=== PATIENT | female | born 1960 | race American Indian/Alaskan Native ===

== ENCOUNTER 2018-01-16 15:09 | Inpatient (IN) | payer OTHER ==
[2018-01-16 15:09] VITALS: BMI 28.6
--- NOTE | 2018-01-16 15:53 | C.PDOC ---
History Of Present Illness 57 year old female with past medical history of diabetes type II presents to the ER for left foot ulcer. Patient states she noticed the ulcer about 2 weeks ago. She saw her PMD Dr. Erickson last week who started her on Bactrim BID for 10 days and Lasix 20mg daily. Patient states she has not noticed any improvement. She had a scheduled appointment with podiatry, Dr. Luisito crook who sent her to the ER. She states she has had chills at home and has been taking her medications as prescribed by Dr. Erickson. She states she has been able to walk with her cane but she feels slight pressure on the bottom of her foot. She denies fever at home or lower extremity pain. Time Seen by Provider: 01/16/18 15:30 Chief Complaint (Nursing): Lower Extremity Problem/Injury Past Medical History Vital Signs: Last Vital Signs Temp 100.2 F H 01/16/18 17:38 Pulse 97 H 01/16/18 17:38 Resp 18 01/16/18 17:38 BP 108/73 01/16/18 17:38 Pulse Ox 100 01/16/18 17:40 - Medical History PMH: Diabetes, Fractures (orif right knee jun 2013), HTN, Hypercholesterolemia - [facility] Procedures CLOSED BIOPSY OF SKIN AND SUBCUTANEOUS TISSUE (11/16/13) ENDOSC POLYPECTOMY OF LG INTEST (04/04/13) OP RED-INT FIX TIB/FIBUL (07/04/13) Family History: States: Unknown Family Hx - Social History Hx Tobacco Use: Yes (2 CIG/DAY) Hx Alcohol Use: No (OCC) Hx Substance Use: No - Immunization History Hx Tetanus Toxoid Vaccination: No Hx Influenza Vaccination: Yes Hx Pneumococcal Vaccination: No Review Of Systems Constitutional: Positive for: Fever, Chills Cardiovascular: Negative for: Chest Pain, Palpitations Gastrointestinal: Negative for: Nausea, Vomiting, Diarrhea Genitourinary: Negative for: Dysuria Skin: Positive for: Other (left foot ulcer; right great toe is dark) Neurological: Negative for: Weakness, Numbness Physical Exam - Physical Exam Appears: Toxic, No Acute Distress Skin: Warm, Other (2cm stage 3 ulcer on the left foot; right great toe necrotic ) Head: Atraumatic, Normacephalic Eye(s): bilateral: Normal Inspection, PERRL, EOMI Cardiovascular: Rhythm Regular Respiratory: Normal Breath Sounds Gastrointestinal/Abdominal: Soft Extremity: Other (2cm stage 3 ulcer on the left foot; right great toe necrotic ) Neurological/Psych: Oriented x3 ED Course And Treatment - Laboratory Results Result Diagrams: 01/16/18 16:13 01/16/18 16:13 ECG: Interpreted By Me, Viewed By Me ECG Rhythm: Sinus Rhythm ECG Interpretation: Normal Rate From EC O2 Sat by Pulse Oximetry: 100 Medical Decision Making Medical Decision Making: Patient was given Vancomycin and Zosyn in the ER. Spoke with podiatry resident at 4pm. Podiatry resident stated wound culture was collected in the clinic. WBC 11.3 Febrile Wound and Blood culture ordered Given Tylenol once Spoke with hospitalist at 5:30pm who accepted patient for admission. Disposition Discussed With : Heath Quintanilla Doctor Will See Patient In The: ED - Disposition Disposition: HOSPITALIZED Disposition Time: 17:40 Condition: FAIR Forms: [facility] ([place]an) - Clinical Impression Clinical Impression: Diabetic foot ulcer associated with type 2 diabetes mellitus, Osteomyelitis of left foot - PA / [employer] / Resident Statement MD/DO has reviewed & agrees with the documentation as recorded. MD/DO has examined the patient and agrees with the treatment plan.
[2018-01-16 16:17] LABS: BASO # 0.1 K/uL (0.0-0.2); BASO % 0.8 % (0.0-2.0); EOS # 0.1 K/uL (0.0-0.7); EOS % 0.7 % (0.0-4.0); HEMOGLOBIN 9.7 g/dL (11.0-16.0); LYMPH # 0.9 K/uL (1.0-4.3); LYMPH % 8.3 % (20.0-40.0); MEAN CORPUSCULAR HEMOGLOBIN 25.8 pg (27.0-31.0); MEAN PLATELET VOLUME 7.1 fL (7.2-11.7); MONO # 0.8 K/uL (0.0-0.8); MONO % 7.5 % (0.0-10.0); NEUT # 9.3 K/uL (1.8-7.0); NEUT % 82.7 % (50.0-75.0); NRBC % 0.1 % (0.0-2.0); RBC 3.74 Mil/uL (3.80-5.20); RED CELL DISTRIBUTION WIDTH 15.1 % (11.5-14.5)
[2018-01-16 16:21] LABS: MEAN CELL VOLUME 80.8 fL (81.0-99.0); PLATELET COUNT 547 K/uL (130-400); WHITE BLOOD COUNT 11.3 K/uL (4.8-10.8)
[2018-01-16] MEDS ORDERED: Piperacillin/Tazobact 3.375 gm 100 ML IVPB STA (16:24)
[2018-01-16 16:31] LABS: ALB/GLOB RATIO 0.7 (1.0-2.1); ALBUMIN 3.6 g/dL (3.5-5.0); CALCIUM 9.9 mg/dl (8.6-10.4); GFR AFRICAN-AMERICAN > 60; GFR NON-AFRICAN AMERICAN > 60
[2018-01-16 16:33] LABS: ALT/SGPT 12 U/L (9-52); AST/SGOT 19 U/L (14-36); BLOOD UREA NITROGEN 8 mg/dL (7-17)
[2018-01-16 16:40] LABS: BANDS 1 % (0-2); LYMPHOCYTE 8 % (20-40); MONOCYTE 5 % (0-10); NEUTROPHIL 86 % (50-75); TOTAL CELLS COUNTED 100
[2018-01-16 16:41] LABS: ANISOCYTOSIS SLIGHT; GIANT PLATELETS PRESENT; HYPOCHROMIC SLIGHT; LARGE PLATELETS PRESENT; PLATELET ESTIMATE INCREASED (NORMAL); POIKILOCYTOSIS SLIGHT; TARGET CELLS SLIGHT
--- NOTE | 2018-01-16 17:14 | RAD ---
Date of service: 01/16/2018 HISTORY: fever COMPARISON: Comparison chest 05/26/2015. FINDINGS: LUNGS: Questionable tiny bleb changes right apex. . PLEURA: No significant pleural effusion identified, no pneumothorax apparent. CARDIOVASCULAR: Normal. OSSEOUS STRUCTURES: No significant abnormalities. VISUALIZED UPPER ABDOMEN: Normal. OTHER FINDINGS: None. IMPRESSION: No active disease. Questionable tiny bleb changes right lung apex.
[2018-01-16] MEDS ORDERED: Piperacillin/Tazobact 3.375 gm 100 ML IVPB ONE (17:19)
--- NOTE | 2018-01-16 17:47 | RAD ---
Date of service: 01/16/2018 PROCEDURE: Bilateral Feet Radiographs. HISTORY: LE ulcer COMPARISON: None. FINDINGS: BONES: Right Foot: Destructive changes of the distal phalanx right great toe with apparent skin surface and subcutaneous ulceration consistent with osteomyelitis. Surrounding soft tissue swelling. Left Foot: Apparent on ulceration changes distal soft tissues left great toe . Early destructive changes osteomyelitis cannot be excluded. JOINTS: Right Foot: Mild hallux valgus deformity with multi articular degenerative osteoarthritis. . Left Foot: Mild hallux valgus deformity with mild multi articular degenerative osteophytes. . SOFT TISSUES: Right Foot: Soft tissue swelling right great toe. . . Left Foot: Soft tissue swelling left great toe. Soft tissue swelling extends proximally to involve remaining soft tissues of the left foot consistent with cellulitis. . . OTHER FINDINGS: None. IMPRESSION: There is a skin surface and subcutaneous ulcer distal right the toe with destructive changes of distal phalanx consistent with osteomyelitis. C. Surrounding soft tissue swelling. Ulcerative changes distal soft tissues of left great toe with surrounding soft tissue swelling. Soft tissue swelling that extends proximally involving the remainder of the left foot consistent with cellulitis.
[2018-01-16] MEDS ORDERED: Dextrose 50% SYRINGE Inj (50 ml) IV PRN (21:53)
[2018-01-16] MEDS ORDERED: Glucagon Recombinant 1 mg Inj IM PRN (21:53)
--- NOTE | 2018-01-16 22:01 | CP.PCM.PN ---
Subjective - Date & Time of Evaluation Date of Evaluation: 01/16/18 Time of Evaluation: 21:55 - Subjective Subjective: Assessment * Left foot abscess, cellulitis under great toe, expressed out pus, swelling in foot, with warmth and pain extending lower 1/3 of the foot, likely started form callus, and dm neuropathy, present DP and PT pulses. * Right foot calluses at pressure area and dry skin on the great toe, present DP, but very weak PT pulses * DM on 75/25 30-0-25 daily. Plan * MRI to see the extent and if the bone infected * IV vanco and zosyn * Wound/puss culture sent in ER * Podiatry aware * Arterial doppler * GI/DVT prophylaxis * Insulin 75/25 25-0-25 * Sliding scale * See orders for detail. Objective - Vital Signs/Intake and Output Vital Signs (last 24 hours): Temp Pulse Resp BP Pulse Ox 99.2 F 95 H 20 121/75 98 01/16/18 19:07 01/16/18 19:07 01/16/18 19:07 01/16/18 19:07 01/16/18 19:07 - Medications Medications: Current Medications Piperacillin Sod/Tazobactam Sod (Zosyn 3.375 Gm Iv Premix) 3.375 gm in 50 mls @ 100 mls/hr IVPB Q6H STEPHANIE PRN Reason: Protocol Vancomycin/Sodium Chloride (Vancomycin 1 Gm/Ns 200 Ml) 1 gm in 200 mls @ 166.7 mls/hr IVPB Q24H STEPHANIE PRN Reason: Protocol Stop: 01/22/18 06:01 Pneumococcal Polyvalent Vaccine (Pneumovax 23 Vaccine) 0.5 ml IM .ONCE ONE Stop: 01/19/18 10:01 Saccharomyces Boulardii (Florastor) 250 mg PO BID STEPHANIE - Labs Labs: 01/16/18 16:13 01/16/18 16:13
--- NOTE | 2018-01-16 22:17 | CP.PCM.HP ---
<Krystal Pate - Last Filed: 01/16/18 22:31> History of Present Illness - History of Present Illness History of Present Illness: CC: Left foot ulcer HPI: Patient is a 57 year old AA female with past medical history of diabetes who presents to the ED after she was seen by her chemistry tutor, Dr. Jorge for left medial foot ulcer. Patient states that she noted left foot wound approximately 2 weeks ago. Patient states that she was seen by her PMD, Dr. Erickson, on January 11 and was prescribed Bactrim 1 tab Q12H and Lasix 20mg PO QD. Since seeing her PMD, patient has noted worsening symptoms such as swelling , tightness, drainage and pins/needle sensation when she starts to ambulate. In addition, patient also noted subjective fever and chills for 2 days. She admits to associated symptoms of decrease appetite for the past 2 weeks. Patient states that she has not been following up with Opal Polisher, Dr. Jorge due to loss of insurance. Patient denies any other symptoms. Code Status: Full code PMD: Dr. Erickson PMHx: Diabetes PSHx: CLOSED BIOPSY OF SKIN AND SUBCUTANEOUS TISSUE (11/16/13), ENDOSC POLYPECTOMY OF LG INTEST (04/04/13) and OP RED-INT FIX TIB/FIBUL (07/04/13) FHx: - Mother: Breast cancer/ unilateral mastectomy, - Maternal Grandmother and Maternal Great grandmother: Diabetes Medications: Humalog 75/25 30 units ACB and Humalog 75/25 25 units ACD Allergies: NKDA Social Hx: Lives with her children. Admits to tobacco use of 5 yrs (3-4 cigarettes per day), occasional ETOH use and illicit drug use Present on Admission - Present on Admission Any Indicators Present on Admission: Yes History of Uncontrolled Diabetes: Yes Review of Systems - Constitutional Constitutional: Chills, Fever. absent: Headache, Increased Appetite, Weight Gain, Weakness - EENT Eyes: absent: Blurred Vision, Change in Vision Ears: absent: Dizziness - Cardiovascular Cardiovascular: absent: Chest Pain, Chest Pain at Rest, Diaphoresis, Dyspnea, Lightheadedness, Palpitations - Respiratory Respiratory: absent: Dyspnea, Dyspnea on Exertion, Wheezing - Gastrointestinal Gastrointestinal: absent: Abdominal Pain, Constipation, Diarrhea, Nausea, Vomiting - Genitourinary Genitourinary: absent: Dysuria, Pyuria, Urinary Frequency, Urinary Urgency - Neurological Neurological: Abnormal Gait, Tingling. absent: Confusion, Dizziness, Headaches , Loss of Vision, Paresthesias, Restless Legs, Sensory Deficit, Weakness Additional comments: Pins and needle sensation left foot - Psychiatric Psychiatric: Change in Appetite - Endocrine Endocrine: absent: Fatigue, Palpitations Past Patient History - Past Medical History & Family History Past Medical History?: Yes - Past Social History Smoking Status: 2 cig/day - CARDIAC Hx Hypercholesterolemia: Yes Hx Hypertension: Yes - ENDOCRINE/METABOLIC Hx Endocrine Disorders: Yes Hx Diabetes Mellitus Type 2: Yes - INTEGUMENTARY Hx Dermatological Problems: Yes Hx Eczema: Yes (none at present) Other/Comment: necrotic wound on foot, ulcers - MUSCULOSKELETAL/RHEUMATOLOGICAL Hx Falls: Yes (2013) Hx Fractures: Yes (orif right knee jun 2013) - PSYCHIATRIC Hx Substance Use: No - SURGICAL HISTORY Hx Surgeries: Yes Hx Open Reduction Internal Fixation: Yes (orif right knee jun 2013) - ANESTHESIA Hx Anesthesia: Yes Hx Anesthesia Reactions: No Hx Malignant Hyperthermia: No Meds Allergies/Adverse Reactions: Allergies Allergy/AdvReac Type Severity Reaction Status Date / Time No Known Allergies Allergy Verified 01/16/18 15:19 Physical Exam - Constitutional Appears: No Acute Distress - Head Exam Head Exam: ATRAUMATIC, NORMAL INSPECTION - Eye Exam Eye Exam: EOMI, Normal appearance - ENT Exam ENT Exam: Mucous Membranes Moist - Respiratory Exam Respiratory Exam: Clear to Auscultation Bilateral, NORMAL BREATHING PATTERN. absent: Decreased Breath Sounds, Prolonged Expiratory Phase, Rhonchi, Wheezes, Respiratory Distress - Cardiovascular Exam Cardiovascular Exam: REGULAR RHYTHM, +S1, +S2. absent: Tachycardia, Diastolic murmur, Systolic Murmur - GI/Abdominal Exam GI & Abdominal Exam: Normal Bowel Sounds, Soft. absent: Diminished Bowel Sounds , Distended, Firm, Guarding, Hernia, Hyperactive Bowel Sounds, Hypoactive Bowel Sounds, Tenderness - Extremities Exam Additional comments: Left foot: Medial ( below the great toe) abscess with odorous pus drainage and expression. 2 plantar calluses Warm to touch with DP and PT pulses palpable Right foot: 2-3 plantar calluses and noted dry/necrotic skin on the great toe. Warm to touch and palpable DT and PT pulses - Back Exam Back exam: NORMAL INSPECTION. absent: CVA tenderness (L), CVA tenderness (R) - Neurological Exam Neurological exam: Alert, CN II-XII Intact, Oriented x3 - Psychiatric Exam Psychiatric exam: Normal Affect - Skin Skin Exam: Normal Color Results - Vital Signs Recent Vital Signs: Last Vital Signs Temp 99.2 F 01/16/18 19:07 Pulse 95 H 01/16/18 19:07 Resp 20 01/16/18 19:07 BP 121/75 01/16/18 19:07 Pulse Ox 98 01/16/18 19:07 - Labs Result Diagrams: 01/16/18 16:13 01/16/18 16:13 Labs: Laboratory Results - last 24 hr 01/16/18 01/16/18 16:13 16:13 WBC 11.3 H D RBC 3.74 L Hgb 9.7 L Hct 30.2 L MCV 80.8 L D MCH 25.8 L MCHC 32.0 L RDW 15.1 H Plt Count 547 H D MPV 7.1 L Neut % (Auto) 82.7 H Lymph % (Auto) 8.3 L [place] % (Auto) 7.5 Eos % (Auto) 0.7 Baso % (Auto) 0.8 Neut # (Auto) 9.3 H Lymph # (Auto) 0.9 L [place] # (Auto) 0.8 Eos # (Auto) 0.1 Baso # (Auto) 0.1 Neutrophils % (Manual) 86 H Band Neutrophils % 1 Lymphocytes % (Manual) 8 L Monocytes % (Manual) 5 Platelet Estimate Increased H Large Platelets Present Giant Platelets Present Hypochromasia (manual) Slight Poikilocytosis (manual Slight Anisocytosis (manual) Slight Target Cells Slight ESR 100 H Sodium 137 Potassium 4.2 Chloride 98 Carbon Dioxide 24 Anion Gap 19 BUN 8 Creatinine 0.8 Est GFR ( Amer) > 60 Est GFR (Non-Af Amer) > 60 Random Glucose 161 H Calcium 9.9 Total Bilirubin 0.8 AST 19 ALT 12 Alkaline Phosphatase 98 Total Protein 8.5 H Albumin 3.6 Globulin 4.9 H Albumin/Globulin Ratio 0.7 L Assessment & Plan (1) Diabetic foot ulcer associated with type 2 diabetes mellitus Assessment and Plan: Left foot ulcer Consultation: Opal PolisherDr. Jorge---> Help appreciated * Management as per recommendation Infectious disease, Imaging/ Labs: Foot X-ray: There is a skin surface and subcutaneous ulcer distal right the toe with destructive changes of distal phalanx consistent with osteomyelitis. C. Surrounding soft tissue swelling. Ulcerative changes distal soft tissues of left great toe with surrounding soft tissue swelling. Soft tissue swelling that extends proximally involving the remainder of the left foot consistent with cellulitis. F/u Foot MRI F/u wound culture Medication/Management: * Vancomycin 1gm IV Q12H * Zosyn 3.357gm IV Q6H * Florastor 250mg PO BID Status: Acute (2) Diabetes mellitus Assessment and Plan: HgbA1C (01/16/18): 9.9 Continue home medication: * Humalog 70/30 25 units ACB * Humalog 70/30 25 units ACD * ISS low dose * Lisinopril 2.5mg PO daily * Accuchecks * Hypoglycemia protocol F/u lipid panel Status: Acute (3) Prophylactic measure Assessment and Plan: GI: Not indicated DVT: SCDs contraindicated. Heparin 5,000 units Q8H All plans and management discussed with Dr. Kaba Status: Acute <Mark Kaba P - Last Filed: 01/20/18 07:51> Results - Vital Signs Recent Vital Signs: Last Vital Signs Temp 98.3 F 01/20/18 00:00 Pulse 89 01/20/18 00:00 Resp 20 01/20/18 00:00 BP 110/69 01/20/18 00:00 Pulse Ox 100 01/20/18 00:00 - Labs Result Diagrams: 01/19/18 07:28 01/19/18 07:28 Labs: Laboratory Results - last 24 hr 01/19/18 01/19/18 01/19/18 07:28 11:21 11:22 Sodium 137 Potassium 4.0 Chloride 101 Carbon Dioxide 27 Anion Gap 14 BUN 8 Creatinine 0.8 Est GFR ( Amer) > 60 Est GFR (Non-Af Amer) > 60 POC Glucose (mg/dL) 59 L 63 L Random Glucose 123 H Calcium 9.7 Phosphorus 3.2 Magnesium 1.7 Total Bilirubin 0.4 AST 22 ALT 15 Alkaline Phosphatase 85 Total Protein 7.1 Albumin 3.2 L Globulin 3.8 Albumin/Globulin Ratio 0.8 L 01/19/18 01/19/18 01/19/18 12:00 16:18 21:42 Sodium Potassium Chloride Carbon Dioxide Anion Gap BUN Creatinine Est GFR ( Amer) Est GFR (Non-Af Amer) POC Glucose (mg/dL) 87 110 98 Random Glucose Calcium Phosphorus Magnesium Total Bilirubin AST ALT Alkaline Phosphatase Total Protein Albumin Globulin Albumin/Globulin Ratio Attending/Attestation - Attestation I have personally seen and examined this patient.: Yes I have fully participated in the care of the patient.: Yes I have reviewed all pertinent clinical information: Yes Notes (Text): See note on the same day.
[2018-01-16] MEDS: Piperacill/Tazo 3.375gm in Dex 3.375 GM/50 ML BAG IVPB SCH (22:19)
[2018-01-16] MEDS: (Novolog) Insulin Aspart, Recombinant 100 u/ml 10 ml vial SC SCH (22:48)
[2018-01-17] MEDS: Piperacill/Tazo 3.375gm in Dex 3.375 GM/50 ML BAG IVPB SCH ×4 (05:38→22:02)
[2018-01-17] MEDS ORDERED: Vancomycin 1 gm/NS 200 ml 1 GM/200 ML BAG IVPB SCH ×2 (06:00→08:00)
[2018-01-17 06:04] LABS: BASO # 0.1 K/uL (0.0-0.2); BASO % 1.1 % (0.0-2.0); EOS # 0.1 K/uL (0.0-0.7); EOS % 1.3 % (0.0-4.0); HEMOGLOBIN 8.6 g/dL (11.0-16.0); LYMPH # 1.6 K/uL (1.0-4.3); LYMPH % 19.8 % (20.0-40.0); MEAN CELL VOLUME 80.1 fL (81.0-99.0); MEAN CORPUSCULAR HEMOGLOBIN 26.2 pg (27.0-31.0); MEAN CORPUSCULAR HGB CONC 32.7 g/dL (33.0-37.0); MEAN PLATELET VOLUME 6.9 fL (7.2-11.7); MONO # 0.9 K/uL (0.0-0.8); MONO % 11.8 % (0.0-10.0); NEUT # 5.2 K/uL (1.8-7.0); NRBC % 0.1 % (0.0-2.0); RBC 3.28 Mil/uL (3.80-5.20); WHITE BLOOD COUNT 7.9 K/uL (4.8-10.8)
[2018-01-17 07:31] LABS: LDL CHOLESTEROL 66 mg/dL (0-129)
[2018-01-17 07:32] LABS: ALB/GLOB RATIO 0.9 (1.0-2.1); ALBUMIN 3.1 g/dL (3.5-5.0); ALT/SGPT 15 U/L (9-52); AST/SGOT 32 U/L (14-36); BLOOD UREA NITROGEN 7 mg/dL (7-17); CALCIUM 9.4 mg/dl (8.6-10.4); GFR AFRICAN-AMERICAN > 60; GFR NON-AFRICAN AMERICAN > 60; HDL CHOLESTEROL 18 mg/dL (30-70)
[2018-01-17] MEDS: (Novolog) Insulin Aspart, Recombinant 100 u/ml 10 ml vial SC SCH ×4 (08:18→22:01)
[2018-01-17] MEDS: (Novolog Mix 70/30) Insulin Aspart/Insulin Aspar 100 units/ml SC SCH ×2 (08:25→16:30)
[2018-01-17] MEDS: Vancomycin 1 gm/NS 200 ml 1 GM/200 ML BAG IVPB SCH ×2 (10:39→20:00)
[2018-01-17] MEDS: Saccharomyces Boulardi 250 mg Cap PO SCH ×2 (10:41→17:26)
--- NOTE | 2018-01-17 11:13 | CP.PCM.CON ---
History of Present Illness - History of Present Illness History of Present Illness: 57 y/o female with PMHx of DM seen at bedside today for evaluation and management of left foot sub met 1 and lateral hallux draining ulcerations and right foot preulcerative lesions with hyperpigmented necrotic skin discoloration noted to 1st and 2nd digits. Pt was sent into the ED yesterday after seeing Dr. Jorge in podiatry clinic. Pt states that her calluses popped open a couple of weeks ago and she saw her PCP, who prescribed her antibiotics and referred her to podiatry. Pt states she has not followed up until yesterday due to issues with insurance. At present, says she had fever and chills over the last few days, which today has subsided. Denies N/V/CP/SOB. Dressings applied in podiatry clinic yesterday remain clean dry and intact. PSHx: polypectomy, ORIF tib/fib All: NKDA SocHx: social EtOH, 3-4 cigarettes/day; denies illicit drug use Review of Systems - Review of Systems All systems: reviewed and no additional remarkable complaints except (per HPI) Past Patient History - Past Medical History & Family History Past Medical History?: Yes - Past Social History Smoking Status: 2 cig/day - CARDIAC Hx Hypercholesterolemia: Yes Hx Hypertension: Yes - ENDOCRINE/METABOLIC Hx Endocrine Disorders: Yes Hx Diabetes Mellitus Type 2: Yes - INTEGUMENTARY Hx Dermatological Problems: Yes Hx Eczema: Yes (none at present) Other/Comment: necrotic wound on foot, ulcers - MUSCULOSKELETAL/RHEUMATOLOGICAL Hx Falls: Yes (2013) Hx Fractures: Yes (orif right knee jun 2013) - PSYCHIATRIC Hx Substance Use: No - SURGICAL HISTORY Hx Surgeries: Yes Hx Open Reduction Internal Fixation: Yes (orif right knee jun 2013) - ANESTHESIA Hx Anesthesia: Yes Hx Anesthesia Reactions: No Hx Malignant Hyperthermia: No Meds Allergies/Adverse Reactions: Allergies Allergy/AdvReac Type Severity Reaction Status Date / Time No Known Allergies Allergy Verified 01/16/18 15:19 - Medications Medications: Current Medications Dextrose (Dextrose 50% Inj) 0 ml IV STAT PRN; Protocol PRN Reason: Hypoglycemia Protocol Dextrose (Glutose 15) 0 gm PO ONCE PRN; Protocol PRN Reason: Hypoglycemia Protocol Glucagon (Glucagen Diagnostic Kit) 0 mg IM STAT PRN; Protocol PRN Reason: Hypoglycemia Protocol Heparin Sodium (Porcine) (Heparin) 5,000 units SC Q8 [facility] Last Admin: 01/17/18 05:37 Dose: 5,000 units Piperacillin Sod/Tazobactam Sod (Zosyn 3.375 Gm Iv Premix) 3.375 gm in 50 mls @ 100 mls/hr IVPB Q6H STEPHANIE PRN Reason: Protocol Last Admin: 01/17/18 10:41 Dose: 100 mls/hr Dextrose (Dextrose 5% In Water 1000 Ml) 1,000 mls @ 0 mls/hr IV .Q0M PRN; Protocol; Per Protocol PRN Reason: Hypoglycemia Protocol Vancomycin/Sodium Chloride (Vancomycin 1 Gm/Ns 200 Ml) 1 gm in 200 mls @ 166.7 mls/hr IVPB Q12H STEPHANIE PRN Reason: Protocol Stop: 01/22/18 08:01 Last Admin: 01/17/18 10:39 Dose: 166.7 mls/hr Insulin Aspart (Novolog Mix 70/30 (70/30 Units/Ml)) 25 units SC ACB [facility] Last Admin: 01/17/18 08:25 Dose: 25 units Insulin Aspart (Novolog Mix 70/30 (70/30 Units/Ml)) 25 units SC ACD [facility] Insulin Aspart (Novolog) 0 unit SC ACHS [facility] PRN Reason: Protocol Last Admin: 01/17/18 08:18 Dose: Not Given Lisinopril (Zestril) 2.5 mg PO DAILY [facility] Last Admin: 01/17/18 10:41 Dose: 2.5 mg Pneumococcal Polyvalent Vaccine (Pneumovax 23 Vaccine) 0.5 ml IM .ONCE ONE Stop: 01/19/18 10:01 Saccharomyces Boulardii (Florastor) 250 mg PO BID [facility] Last Admin: 01/17/18 10:41 Dose: 250 mg Physical Exam - Constitutional Appears: Well, Non-toxic, No Acute Distress - Extremities Exam Additional comments: Lower extremity focused exam: Vasc: DP/PT pulses palpable 2/4. Temperature gradient warm to cool. CFT < 3 sec to all digits of left foot and 3-5th digits R foot; unable to assess to R foot 1st and 2nd digits secondary to possible necrotic changes. Derm: Open circular ulceration approx 2cm in diameter noted sub met 1 of L foot with macerated wound edges. Significant malodor noted. Wound probes down to metatarsal bone. 3-4cc purulent drainage expressed with pressure. Fluctuance noted to jeana wound area extending proximally. Wound tunnels proximally and laterally approx 4-5cm. Additional circular ulceration 0.9cm in diameter noted to lateral aspect of hallux with macerated wound edges. Wound probes to hallux bone. No active purulent drainage expressed. R foot 1st and 2nd digits exhibit necrotic, gangrenous skin changes. Hyperkeratotic preulcerative lesions noted to distal medial hallux and sub met 2 of R foot with dense, thickened hyperkeratotic tissue. Neuro: Protective sensation grossly intact Ortho: Mild-moderate tenderness to palpation of left foot ulcerations. No tenderness to palpation of R foot digits - Neurological Exam Neurological exam: Alert, Oriented x3 - Psychiatric Exam Psychiatric exam: Normal Affect, Normal Mood Results - Vital Signs Recent Vital Signs: Last Vital Signs Temp 98.2 F 01/17/18 07:58 Pulse 83 01/17/18 07:58 Resp 20 01/17/18 07:58 BP 113/72 01/17/18 07:58 Pulse Ox 97 01/17/18 07:58 - Labs Result Diagrams: 01/17/18 05:57 01/17/18 05:57 Labs: Laboratory Results - last 24 hr 01/16/18 01/16/18 01/16/18 16:13 16:13 21:02 WBC 11.3 H D RBC 3.74 L Hgb 9.7 L Hct 30.2 L MCV 80.8 L D MCH 25.8 L MCHC 32.0 L RDW 15.1 H Plt Count 547 H D MPV 7.1 L Neut % (Auto) 82.7 H Lymph % (Auto) 8.3 L [place] % (Auto) 7.5 Eos % (Auto) 0.7 Baso % (Auto) 0.8 Neut # (Auto) 9.3 H Lymph # (Auto) 0.9 L [place] # (Auto) 0.8 Eos # (Auto) 0.1 Baso # (Auto) 0.1 Neutrophils % (Manual) 86 H Band Neutrophils % 1 Lymphocytes % (Manual) 8 L Monocytes % (Manual) 5 Platelet Estimate Increased H Large Platelets Present Giant Platelets Present Hypochromasia (manual) Slight Poikilocytosis (manual Slight Anisocytosis (manual) Slight Target Cells Slight ESR 100 H Sodium 137 Potassium 4.2 Chloride 98 Carbon Dioxide 24 Anion Gap 19 BUN 8 Creatinine 0.8 Est GFR ( Amer) > 60 Est GFR (Non-Af Amer) > 60 POC Glucose (mg/dL) 153 H Random Glucose 161 H Calcium 9.9 Phosphorus Magnesium Total Bilirubin 0.8 AST 19 ALT 12 Alkaline Phosphatase 98 Total Protein 8.5 H Albumin 3.6 Globulin 4.9 H Albumin/Globulin Ratio 0.7 L Triglycerides Cholesterol LDL Cholesterol Direct HDL Cholesterol 01/17/18 01/17/18 01/17/18 05:57 05:57 07:14 WBC 7.9 RBC 3.28 L Hgb 8.6 L Hct 26.3 L MCV 80.1 L MCH 26.2 L MCHC 32.7 L RDW 15.0 H Plt Count 492 H MPV 6.9 L Neut % (Auto) 66.0 Lymph % (Auto) 19.8 L [place] % (Auto) 11.8 H Eos % (Auto) 1.3 Baso % (Auto) 1.1 Neut # (Auto) 5.2 Lymph # (Auto) 1.6 [place] # (Auto) 0.9 H Eos # (Auto) 0.1 Baso # (Auto) 0.1 Neutrophils % (Manual) Band Neutrophils % Lymphocytes % (Manual) Monocytes % (Manual) Platelet Estimate Large Platelets Giant Platelets Hypochromasia (manual) Poikilocytosis (manual Anisocytosis (manual) Target Cells ESR Sodium 137 Potassium 3.3 L Chloride 99 Carbon Dioxide 29 Anion Gap 12 BUN 7 Creatinine 0.8 Est GFR ( Amer) > 60 Est GFR (Non-Af Amer) > 60 POC Glucose (mg/dL) 133 H Random Glucose 153 H Calcium 9.4 Phosphorus 2.7 Magnesium 1.6 Total Bilirubin 0.4 AST 32 ALT 15 Alkaline Phosphatase 85 Total Protein 6.8 Albumin 3.1 L Globulin 3.6 Albumin/Globulin Ratio 0.9 L Triglycerides 83 D Cholesterol 118 LDL Cholesterol Direct 66 HDL Cholesterol 18 L Assessment & Plan - Assessment and Plan (Free Text) Assessment: 57 y/o female with 1) left foot diabetic ulcerations with abscess formation, 2) right foot preulcerative hyperkeratotic lesions and 3) necrotic/gangrenous changes of 1st and 2nd digits Plan: Pt seen and evaluated at bedside Discussed with attending Dr. Jorge LLE MRI reviewed, consistent with acute OM of 1st digit and metatarsal bone, 2nd digit; reactive signal changes to all cuneiforms and cuboid bone RLE MRI reviewed, consistent with acute OM of 1st and 2nd digits Wound cx prelim shows growth of gram pos cocci Wounds flushed with saline and dressed with betadine, ABD, DSD Explained to patient that she will need surgical intervention to clean out the pus collection in the L foot Pt scheduled for left foot incision and drainge tomorrow at 12:30pm NPO after midnight tonight Anticoagulants held at this time Medical optimization in chart, greatly appreciated Pain mgt per primary team Continue IV abx per ID Dr. Moseley Will continue to follow
--- NOTE | 2018-01-17 11:58 | CP.PCM.PN ---
Subjective - Date & Time of Evaluation Date of Evaluation: 01/17/18 Time of Evaluation: 11:56 - Subjective Subjective: PGY 3 Medicine Note- Dr. Erickson's service Patient seen and examined in no apparent acute distress. Patient states that she had a non-healing ulcer on her left foot. She states that she has been on antibiotics; however there has been no improvement. She states that she was seen by Podiatry who confirmed an infection of her toe bone. She will be going to the OR tomorrow for surgery. Patient concerned about the procedure to be performed. She denies chest pain, palpitations, dyspnea nausea, vomiting, diarrhea, constipation at this time. Objective - Vital Signs/Intake and Output Vital Signs (last 24 hours): Temp Pulse Resp BP Pulse Ox 98.2 F 83 20 113/72 97 01/17/18 07:58 01/17/18 07:58 01/17/18 07:58 01/17/18 07:58 01/17/18 07:58 - Medications Medications: Current Medications Dextrose (Dextrose 50% Inj) 0 ml IV STAT PRN; Protocol PRN Reason: Hypoglycemia Protocol Dextrose (Glutose 15) 0 gm PO ONCE PRN; Protocol PRN Reason: Hypoglycemia Protocol Glucagon (Glucagen Diagnostic Kit) 0 mg IM STAT PRN; Protocol PRN Reason: Hypoglycemia Protocol Heparin Sodium (Porcine) (Heparin) 5,000 units SC Q8 [facility] Last Admin: 01/17/18 05:37 Dose: 5,000 units Piperacillin Sod/Tazobactam Sod (Zosyn 3.375 Gm Iv Premix) 3.375 gm in 50 mls @ 100 mls/hr IVPB Q6H [facility] PRN Reason: Protocol Last Admin: 01/17/18 10:41 Dose: 100 mls/hr Dextrose (Dextrose 5% In Water 1000 Ml) 1,000 mls @ 0 mls/hr IV .Q0M PRN; Protocol; Per Protocol PRN Reason: Hypoglycemia Protocol Vancomycin/Sodium Chloride (Vancomycin 1 Gm/Ns 200 Ml) 1 gm in 200 mls @ 166.7 mls/hr IVPB Q12H [facility] PRN Reason: Protocol Stop: 01/22/18 08:01 Last Admin: 01/17/18 10:39 Dose: 166.7 mls/hr Insulin Aspart (Novolog Mix 70/30 (70/30 Units/Ml)) 25 units SC ACB [facility] Last Admin: 01/17/18 08:25 Dose: 25 units Insulin Aspart (Novolog Mix 70/30 (70/30 Units/Ml)) 25 units SC ACD [facility] Insulin Aspart (Novolog) 0 unit SC ACHS [facility] PRN Reason: Protocol Last Admin: 01/17/18 08:18 Dose: Not Given Lisinopril (Zestril) 2.5 mg PO DAILY [facility] Last Admin: 01/17/18 10:41 Dose: 2.5 mg Pneumococcal Polyvalent Vaccine (Pneumovax 23 Vaccine) 0.5 ml IM .ONCE ONE Stop: 01/19/18 10:01 Saccharomyces Boulardii (Florastor) 250 mg PO BID [facility] Last Admin: 01/17/18 10:41 Dose: 250 mg - Labs Labs: 01/17/18 05:57 01/17/18 05:57 - Constitutional Appears: Non-toxic, No Acute Distress - Head Exam Head Exam: ATRAUMATIC, NORMAL INSPECTION - Eye Exam Eye Exam: EOMI Pupil Exam: PERRL - ENT Exam ENT Exam: Mucous Membranes Moist - Neck Exam Neck Exam: Full ROM - Respiratory Exam Respiratory Exam: NORMAL BREATHING PATTERN - Cardiovascular Exam Cardiovascular Exam: +S1, +S2 - GI/Abdominal Exam GI & Abdominal Exam: Soft - Extremities Exam Additional comments: left foot dressed and wrapped in kerlix bandage, dorsalis pedis pulses palpable - Neurological Exam Neurological Exam: Alert, Awake, Oriented x3 - Psychiatric Exam Psychiatric exam: Normal Affect, Normal Mood - Skin Skin Exam: Dry, Warm Assessment and Plan - Assessment and Plan (Free Text) Assessment: Diabetic foot ulcer Assessment and Plan: [employer] PresidentDr. Jorge consulted- F/U recommendations. For OR tomorrow in light of suspected osteomyelitis F/U ID ( Dr. Moseley) recommendations Imaging Foot X-ray: There is a skin surface and subcutaneous ulcer distal right the toe with destructive changes of distal phalanx consistent with osteomyelitis. C. Surrounding soft tissue swelling. Ulcerative changes distal soft tissues of left great toe with surrounding soft tissue swelling. Soft tissue swelling that extends proximally involving the remainder of the left foot consistent with cellulitis. Foot MRI findings suggestive of Osteomyelitis. F/U blood cultures and wound culture results On Vancomycin 1gm IV Q12H , Zosyn 3.357gm IV Q6H and Florastor 250mg PO BID F/U vanc trough Monitor NPO past midnight EKG findings CXR findings: Detsky Score is 0. This is indicative of a 6% chance of cardiologic event during a non-cardiologic surgery. Perez score is 0.02% for cardiac risk. Patient is medically optimized for surgical procedure based on this assessment. Status: Acute Diabetes mellitus Assessment and Plan: HgbA1C (01/16/18): 9.9 Continue home medication: * Humalog 70/30 25 units ACB * Humalog 70/30 25 units ACD * ISS low dose * Lisinopril 2.5mg PO daily * Accuchecks * Hypoglycemia protocol Status: Acute Low HDL Assessment and Plan: Recommendations for Fibrates or Niacin post surgery with continued management with outpatient doctor. Status: Likely chronic Prophylactic measure Assessment and Plan: GI: Not indicated DVT: SCDs contraindicated. Heparin 5,000 units Q8H - held past midnight
--- NOTE | 2018-01-17 12:07 | CP.PCM.CON ---
History of Present Illness - History of Present Illness History of Present Illness: 57 year old AA female with past medical history of diabetes who presents to the ED after she was seen by her javascript developer, Dr. Jorge for left medial foot ulcer. failed out pt rx started vanco/zosyn PMHx: Diabetes PSHx: CLOSED BIOPSY OF SKIN AND SUBCUTANEOUS TISSUE (11/16/13), ENDOSC POLYPECTOMY OF LG INTEST (04/04/13) and OP RED-INT FIX TIB/FIBUL (07/04/13) FHx: - Mother: Breast cancer/ unilateral mastectomy, - Maternal Grandmother and Maternal Great grandmother: Diabetes Medications: Humalog 75/25 30 units ACB and Humalog 75/25 25 units ACD Allergies: NKDA Social Hx: Lives with her children. Admits to tobacco use of 5 yrs (3-4 cigarettes per day), occasional ETOH use and illicit drug use Present on Admission - Present on Admission Any Indicators Present on Admission: Yes History of Uncontrolled Diabetes: Yes Review of Systems - Constitutional Constitutional: Chills, Fever. absent: Headache, Increased Appetite, Weight Gain, Weakness - EENT Eyes: absent: Blurred Vision, Change in Vision Ears: absent: Dizziness - Cardiovascular Cardiovascular: absent: Chest Pain, Chest Pain at Rest, Diaphoresis, Dyspnea, Lightheadedness, Palpitations - Respiratory Respiratory: absent: Dyspnea, Dyspnea on Exertion, Wheezing - Gastrointestinal Gastrointestinal: absent: Abdominal Pain, Constipation, Diarrhea, Nausea, Vomiting - Genitourinary Genitourinary: absent: Dysuria, Pyuria, Urinary Frequency, Urinary Urgency - Neurological Neurological: Abnormal Gait, Tingling. absent: Confusion, Dizziness, Headaches , Loss of Vision, Paresthesias, Restless Legs, Sensory Deficit, Weakness Additional comments: Pins and needle sensation left foot Past Patient History - Past Medical History & Family History Past Medical History?: Yes - Past Social History Smoking Status: 2 cig/day - CARDIAC Hx Hypercholesterolemia: Yes Hx Hypertension: Yes - ENDOCRINE/METABOLIC Hx Endocrine Disorders: Yes Hx Diabetes Mellitus Type 2: Yes - INTEGUMENTARY Hx Dermatological Problems: Yes Hx Eczema: Yes (none at present) Other/Comment: necrotic wound on foot, ulcers - MUSCULOSKELETAL/RHEUMATOLOGICAL Hx Falls: Yes (2013) Hx Fractures: Yes (orif right knee jun 2013) - PSYCHIATRIC Hx Substance Use: No - SURGICAL HISTORY Hx Surgeries: Yes Hx Open Reduction Internal Fixation: Yes (orif right knee jun 2013) - ANESTHESIA Hx Anesthesia: Yes Hx Anesthesia Reactions: No Hx Malignant Hyperthermia: No Meds Allergies/Adverse Reactions: Allergies Allergy/AdvReac Type Severity Reaction Status Date / Time No Known Allergies Allergy Verified 01/16/18 15:19 - Medications Medications: Current Medications Dextrose (Dextrose 50% Inj) 0 ml IV STAT PRN; Protocol PRN Reason: Hypoglycemia Protocol Dextrose (Glutose 15) 0 gm PO ONCE PRN; Protocol PRN Reason: Hypoglycemia Protocol Glucagon (Glucagen Diagnostic Kit) 0 mg IM STAT PRN; Protocol PRN Reason: Hypoglycemia Protocol Heparin Sodium (Porcine) (Heparin) 5,000 units SC Q8 [facility] Last Admin: 01/17/18 05:37 Dose: 5,000 units Piperacillin Sod/Tazobactam Sod (Zosyn 3.375 Gm Iv Premix) 3.375 gm in 50 mls @ 100 mls/hr IVPB Q6H [facility] PRN Reason: Protocol Last Admin: 01/17/18 10:41 Dose: 100 mls/hr Dextrose (Dextrose 5% In Water 1000 Ml) 1,000 mls @ 0 mls/hr IV .Q0M PRN; Protocol; Per Protocol PRN Reason: Hypoglycemia Protocol Vancomycin/Sodium Chloride (Vancomycin 1 Gm/Ns 200 Ml) 1 gm in 200 mls @ 166.7 mls/hr IVPB Q12H [facility] PRN Reason: Protocol Stop: 01/22/18 08:01 Last Admin: 01/17/18 10:39 Dose: 166.7 mls/hr Insulin Aspart (Novolog Mix 70/30 (70/30 Units/Ml)) 25 units SC ACB [facility] Last Admin: 01/17/18 08:25 Dose: 25 units Insulin Aspart (Novolog Mix 70/30 (70/30 Units/Ml)) 25 units SC ACD [facility] Insulin Aspart (Novolog) 0 unit SC ACHS [facility] PRN Reason: Protocol Last Admin: 01/17/18 08:18 Dose: Not Given Lisinopril (Zestril) 2.5 mg PO DAILY [facility] Last Admin: 01/17/18 10:41 Dose: 2.5 mg Pneumococcal Polyvalent Vaccine (Pneumovax 23 Vaccine) 0.5 ml IM .ONCE ONE Stop: 01/19/18 10:01 Saccharomyces Boulardii (Florastor) 250 mg PO BID [facility] Last Admin: 01/17/18 10:41 Dose: 250 mg Physical Exam - Constitutional Appears: Chronically Ill - Head Exam Head Exam: ATRAUMATIC - Eye Exam Eye Exam: absent: Scleral icterus - ENT Exam ENT Exam: Mucous Membranes Dry - Neck Exam Neck exam: Negative for: Lymphadenopathy - Respiratory Exam Respiratory Exam: Decreased Breath Sounds, Rhonchi - Cardiovascular Exam Cardiovascular Exam: REGULAR RHYTHM, +S1, +S2 - GI/Abdominal Exam GI & Abdominal Exam: Diminished Bowel Sounds, Soft. absent: Tenderness - Rectal Exam Rectal Exam: Deferred - Exam Exam: NORMAL INSPECTION - Extremities Exam Extremities exam: Positive for: pedal edema, tenderness. Negative for: calf tenderness, pedal pulses present - Back Exam Back exam: absent: CVA tenderness (L), CVA tenderness (R) - Neurological Exam Neurological exam: Alert, CN II-XII Intact, Oriented x3, Reflexes Normal - Psychiatric Exam Psychiatric exam: Normal Mood - Skin Skin Exam: Dry Results - Vital Signs Recent Vital Signs: Last Vital Signs Temp 98.2 F 01/17/18 07:58 Pulse 83 01/17/18 07:58 Resp 20 01/17/18 07:58 BP 113/72 01/17/18 07:58 Pulse Ox 97 01/17/18 07:58 - Labs Result Diagrams: 01/18/18 07:15 01/18/18 07:15 Labs: Laboratory Results - last 24 hr 01/16/18 01/16/18 01/16/18 16:13 16:13 21:02 WBC 11.3 H D RBC 3.74 L Hgb 9.7 L Hct 30.2 L MCV 80.8 L D MCH 25.8 L MCHC 32.0 L RDW 15.1 H Plt Count 547 H D MPV 7.1 L Neut % (Auto) 82.7 H Lymph % (Auto) 8.3 L [place] % (Auto) 7.5 Eos % (Auto) 0.7 Baso % (Auto) 0.8 Neut # (Auto) 9.3 H Lymph # (Auto) 0.9 L [place] # (Auto) 0.8 Eos # (Auto) 0.1 Baso # (Auto) 0.1 Neutrophils % (Manual) 86 H Band Neutrophils % 1 Lymphocytes % (Manual) 8 L Monocytes % (Manual) 5 Platelet Estimate Increased H Large Platelets Present Giant Platelets Present Hypochromasia (manual) Slight Poikilocytosis (manual Slight Anisocytosis (manual) Slight Target Cells Slight ESR 100 H Sodium 137 Potassium 4.2 Chloride 98 Carbon Dioxide 24 Anion Gap 19 BUN 8 Creatinine 0.8 Est GFR ( Amer) > 60 Est GFR (Non-Af Amer) > 60 POC Glucose (mg/dL) 153 H Random Glucose 161 H Calcium 9.9 Phosphorus Magnesium Total Bilirubin 0.8 AST 19 ALT 12 Alkaline Phosphatase 98 Total Protein 8.5 H Albumin 3.6 Globulin 4.9 H Albumin/Globulin Ratio 0.7 L Triglycerides Cholesterol LDL Cholesterol Direct HDL Cholesterol 01/17/18 01/17/18 01/17/18 05:57 05:57 07:14 WBC 7.9 RBC 3.28 L Hgb 8.6 L Hct 26.3 L MCV 80.1 L MCH 26.2 L MCHC 32.7 L RDW 15.0 H Plt Count 492 H MPV 6.9 L Neut % (Auto) 66.0 Lymph % (Auto) 19.8 L [place] % (Auto) 11.8 H Eos % (Auto) 1.3 Baso % (Auto) 1.1 Neut # (Auto) 5.2 Lymph # (Auto) 1.6 [place] # (Auto) 0.9 H Eos # (Auto) 0.1 Baso # (Auto) 0.1 Neutrophils % (Manual) Band Neutrophils % Lymphocytes % (Manual) Monocytes % (Manual) Platelet Estimate Large Platelets Giant Platelets Hypochromasia (manual) Poikilocytosis (manual Anisocytosis (manual) Target Cells ESR Sodium 137 Potassium 3.3 L Chloride 99 Carbon Dioxide 29 Anion Gap 12 BUN 7 Creatinine 0.8 Est GFR ( Amer) > 60 Est GFR (Non-Af Amer) > 60 POC Glucose (mg/dL) 133 H Random Glucose 153 H Calcium 9.4 Phosphorus 2.7 Magnesium 1.6 Total Bilirubin 0.4 AST 32 ALT 15 Alkaline Phosphatase 85 Total Protein 6.8 Albumin 3.1 L Globulin 3.6 Albumin/Globulin Ratio 0.9 L Triglycerides 83 D Cholesterol 118 LDL Cholesterol Direct 66 HDL Cholesterol 18 L 01/17/18 11:13 WBC RBC Hgb Hct MCV MCH MCHC RDW Plt Count MPV Neut % (Auto) Lymph % (Auto) [place] % (Auto) Eos % (Auto) Baso % (Auto) Neut # (Auto) Lymph # (Auto) [place] # (Auto) Eos # (Auto) Baso # (Auto) Neutrophils % (Manual) Band Neutrophils % Lymphocytes % (Manual) Monocytes % (Manual) Platelet Estimate Large Platelets Giant Platelets Hypochromasia (manual) Poikilocytosis (manual Anisocytosis (manual) Target Cells ESR Sodium Potassium Chloride Carbon Dioxide Anion Gap BUN Creatinine Est GFR ( Amer) Est GFR (Non-Af Amer) POC Glucose (mg/dL) 120 H Random Glucose Calcium Phosphorus Magnesium Total Bilirubin AST ALT Alkaline Phosphatase Total Protein Albumin Globulin Albumin/Globulin Ratio Triglycerides Cholesterol LDL Cholesterol Direct HDL Cholesterol Assessment & Plan (1) Diabetes mellitus Status: Acute (2) Diabetic foot ulcer associated with type 2 diabetes mellitus Status: Acute (3) Osteomyelitis of left foot Status: Acute - Assessment and Plan (Free Text) Assessment: await cultures, MRI and or bone scan vascular eval IV antibiotics
--- NOTE | 2018-01-17 12:42 | MRI ---
MRI left forefoot History: Osteomyelitis. Comparison: MRI dated 05/28/2015 Technique: Multi-echo multiplanar sequences were performed through the left forefoot without the use of intravenous contrast. Findings: Extensive signal abnormality with apparent fluid seen at the level of the 1st digit suggestive for abscess/phlegmon/gas gangrene. Clinical correlation. At the level of the 1st digit, medial to the 1st metatarsal bone, there is a 4.3 x 1.8 centimeter heterogeneous collection suggestive of an abscess collection. Adjacent heterogeneous phlegmonous changes with possible gas gangrene throughout the remainder of the soft tissues at that level. There is apparent extension of the collection to the level of the 1st flexor tendon suggestive for a infected tenosynovitis. Moderate fluid distention at 1st MTP joint space which may be an infected synovitis. Extensive signal abnormality seen within the 1st distal and proximal phalanges as well as the distal half of the 1st metatarsal bone including the metatarsal head and distal medullary cavity as well as the sesamoid bones demonstrating decreased T1 signal and increased STIR signal consistent with an acute osteomyelitis. Patchy signal abnormality noted within the 2nd middle and proximal phalanges as well as the base the 2nd metatarsal bone also concerning for acute infectious changes. Additional signal abnormality noted in the medial middle and lateral cuneiform bones as well as the lateral aspect of the cuboid bone demonstrating patchy decreased T1 signal and increased STIR signal also concerning for acute infectious changes. Scattered areas of milder reactive bone marrow edema seen at the base of the 4th metatarsal bone which may represent developing acute infectious changes. Fraying with increased signal at the level of the Lisfranc ligament suggestive for a sprain and/or partial tearing. Impression: Extensive signal abnormality with apparent fluid seen at the level of the 1st digit suggestive for abscess/phlegmon/gas gangrene. Clinical correlation. At the level of the 1st digit, medial to the 1st metatarsal bone, there is a 4.3 x 1.8 centimeter heterogeneous collection suggestive of an abscess collection. Adjacent heterogeneous phlegmonous changes with possible gas gangrene throughout the remainder of the soft tissues at that level. There is apparent extension of the collection to the level of the 1st flexor tendon suggestive for a infected tenosynovitis. Moderate fluid distention at 1st MTP joint space which may be an infected synovitis. Extensive signal abnormality seen within the 1st distal and proximal phalanges as well as the distal half of the 1st metatarsal bone including the metatarsal head and distal medullary cavity as well as the sesamoid bones demonstrating decreased T1 signal and increased STIR signal consistent with an acute osteomyelitis. Patchy signal abnormality noted within the 2nd middle and proximal phalanges as well as the base the 2nd metatarsal bone also concerning for acute infectious changes. Additional signal abnormality noted in the medial middle and lateral cuneiform bones as well as the lateral aspect of the cuboid bone demonstrating patchy decreased T1 signal and increased STIR signal also concerning for acute infectious changes. Scattered areas of milder reactive bone marrow edema seen at the base of the 4th metatarsal bone which may represent developing acute infectious changes. Fraying with increased signal at the level of the Lisfranc ligament suggestive for a sprain and/or partial tearing.
--- NOTE | 2018-01-17 13:27 | MRI ---
MRI right forefoot History: Diabetic ulcer. Evaluate for osteomyelitis. Comparison: None available. Technique: Multi-echo multiplanar sequences were performed through the right forefoot without the use of intravenous contrast. Findings: Prominent ulceration noted at the level of the 1st distal phalanx. Extensive signal abnormality seen throughout the 1st distal phalanx with decreased T1 signal and increased STIR signal suggestive for an acute osteomyelitis. Additional reactive bone marrow edema with some patchy decreased T1 signal and increased STIR signal noted at the head of the 1st proximal phalanx also concerning for developing acute osteomyelitis. Severe hallux valgus deformity with degenerative changes noted at the 1st MTP joint space with some reactive edema at the base of 1st proximal phalanx. Signal abnormality noted within the base of the 1st metatarsal bone as well as the lateral aspect of the medial cuneiform bone. This is of uncertain clinical etiology and may be the sequelae of degenerative change versus developing acute inflammatory and or infectious changes. Clinical correlation. Extensive signal abnormality seen within proximal and middle phalanges of the 2nd digit with decreased T1 signal and increased STIR signal also concerning for an acute osteomyelitis. Some additional patchy reactive bone marrow edema seen within the base of the 2nd distal phalanx. Nonspecific reactive edema and/or failure of fat suppression at the head of the 5th proximal phalanx as well as the 5th middle phalanx, nonspecific. Clinical correlation. Relative areas of patchy reactive edema seen within the 3rd and 4th phalanges may be the sequelae of failure of fat suppression. Evaluation for acute infectious and or inflammatory changes is limited on this study at these levels. Fraying with some increased signal noted at the level of the Lisfranc ligament which may represent a sprain and or partial tear. Clinical correlation. Impression: Prominent ulceration noted at the level of the 1st distal phalanx. Extensive signal abnormality seen throughout the 1st distal phalanx with decreased T1 signal and increased STIR signal suggestive for an acute osteomyelitis. Additional reactive bone marrow edema with some patchy decreased T1 signal and increased STIR signal noted at the head of the 1st proximal phalanx also concerning for developing acute osteomyelitis. Severe hallux valgus deformity with degenerative changes noted at the 1st MTP joint space with some reactive edema at the base of 1st proximal phalanx. Signal abnormality noted within the base of the 1st metatarsal bone as well as the lateral aspect of the medial cuneiform bone. This is of uncertain clinical etiology and may be the sequelae of degenerative change versus developing acute inflammatory and or infectious changes. Clinical correlation. Extensive signal abnormality seen within proximal and middle phalanges of the 2nd digit with decreased T1 signal and increased STIR signal also concerning for an acute osteomyelitis. Some additional patchy reactive bone marrow edema seen within the base of the 2nd distal phalanx. Nonspecific reactive edema and/or failure of fat suppression at the head of the 5th proximal phalanx as well as the 5th middle phalanx, nonspecific. Clinical correlation. Relative areas of patchy reactive edema seen within the 3rd and 4th phalanges may be the sequelae of failure of fat suppression. Evaluation for acute infectious and or inflammatory changes is limited on this study at these levels. Fraying with some increased signal noted at the level of the Lisfranc ligament which may represent a sprain and or partial tear. Clinical correlation.
[2018-01-18] MEDS: Piperacill/Tazo 3.375gm in Dex 3.375 GM/50 ML BAG IVPB SCH ×4 (05:03→22:05)
[2018-01-18 07:27] LABS: BASO # 0.1 K/uL (0.0-0.2); BASO % 1.2 % (0.0-2.0); EOS # 0.1 K/uL (0.0-0.7); EOS % 1.9 % (0.0-4.0); HEMOGLOBIN 8.5 g/dL (11.0-16.0); LYMPH # 1.3 K/uL (1.0-4.3); LYMPH % 24.2 % (20.0-40.0); MEAN CELL VOLUME 80.3 fL (81.0-99.0); MEAN CORPUSCULAR HEMOGLOBIN 26.8 pg (27.0-31.0); MEAN CORPUSCULAR HGB CONC 33.4 g/dL (33.0-37.0); MEAN PLATELET VOLUME 7.1 fL (7.2-11.7); MONO # 0.6 K/uL (0.0-0.8); MONO % 11.1 % (0.0-10.0); NEUT # 3.4 K/uL (1.8-7.0); NEUT % 61.6 % (50.0-75.0); RBC 3.16 Mil/uL (3.80-5.20); RED CELL DISTRIBUTION WIDTH 14.8 % (11.5-14.5); WHITE BLOOD COUNT 5.5 K/uL (4.8-10.8)
[2018-01-18 07:31] LABS: INR 1.4
[2018-01-18 07:32] LABS: PROTHROMBIN TIME 14.8 SECONDS (9.7-12.2)
[2018-01-18] MEDS: (Novolog Mix 70/30) Insulin Aspart/Insulin Aspar 100 units/ml SC SCH ×2 (07:41→17:10)
[2018-01-18] MEDS: (Novolog) Insulin Aspart, Recombinant 100 u/ml 10 ml vial SC SCH ×4 (07:41→22:02)
[2018-01-18 07:43] LABS: ALB/GLOB RATIO 0.8 (1.0-2.1); ALBUMIN 3.1 g/dL (3.5-5.0); ALT/SGPT 12 U/L (9-52); AST/SGOT 9 U/L (14-36); BLOOD UREA NITROGEN 6 mg/dL (7-17); CALCIUM 9.8 mg/dl (8.6-10.4); GFR AFRICAN-AMERICAN > 60; GFR NON-AFRICAN AMERICAN > 60
--- NOTE | 2018-01-18 07:58 | CP.PCM.PN ---
Subjective - Date & Time of Evaluation Date of Evaluation: 01/18/18 Time of Evaluation: 07:45 - Subjective Subjective: PGY 3 Med Progress Note-Dr. Erickson's service Patient seen and examined in no acute distress. Patient due to OR today. Patient denies complaints. Is ambulating though with discomfort. Patient denies subjective fevers or chills, nausea, vomiting, diarrhea at this time. Objective - Vital Signs/Intake and Output Vital Signs (last 24 hours): Temp Pulse Resp BP Pulse Ox 98.8 F 86 20 116/77 97 01/18/18 07:00 01/18/18 07:00 01/18/18 07:00 01/18/18 07:00 01/18/18 07:00 Intake and Output: 01/18/18 01/18/18 06:59 18:59 Intake Total 650 Balance 650 - Medications Medications: Current Medications Dextrose (Dextrose 50% Inj) 0 ml IV STAT PRN; Protocol PRN Reason: Hypoglycemia Protocol Dextrose (Glutose 15) 0 gm PO ONCE PRN; Protocol PRN Reason: Hypoglycemia Protocol Glucagon (Glucagen Diagnostic Kit) 0 mg IM STAT PRN; Protocol PRN Reason: Hypoglycemia Protocol Heparin Sodium (Porcine) (Heparin) 5,000 units SC Q8 [facility] Last Admin: 01/17/18 14:32 Dose: 5,000 units Piperacillin Sod/Tazobactam Sod (Zosyn 3.375 Gm Iv Premix) 3.375 gm in 50 mls @ 100 mls/hr IVPB Q6H [facility] PRN Reason: Protocol Last Admin: 01/18/18 05:03 Dose: 100 mls/hr Dextrose (Dextrose 5% In Water 1000 Ml) 1,000 mls @ 0 mls/hr IV .Q0M PRN; Protocol; Per Protocol PRN Reason: Hypoglycemia Protocol Vancomycin/Sodium Chloride (Vancomycin 1 Gm/Ns 200 Ml) 1 gm in 200 mls @ 166.7 mls/hr IVPB Q12H [facility] PRN Reason: Protocol Stop: 01/22/18 08:01 Last Admin: 01/17/18 20:00 Dose: 166.7 mls/hr Insulin Aspart (Novolog Mix 70/30 (70/30 Units/Ml)) 25 units SC ACB [facility] Last Admin: 01/18/18 07:41 Dose: Not Given Insulin Aspart (Novolog Mix 70/30 (70/30 Units/Ml)) 25 units SC ACD [facility] Last Admin: 01/17/18 16:30 Dose: 25 units Insulin Aspart (Novolog) 0 unit SC ACHS [facility] PRN Reason: Protocol Last Admin: 01/18/18 07:41 Dose: Not Given Lisinopril (Zestril) 2.5 mg PO DAILY [facility] Last Admin: 01/17/18 10:41 Dose: 2.5 mg Pneumococcal Polyvalent Vaccine (Pneumovax 23 Vaccine) 0.5 ml IM .ONCE ONE Stop: 01/19/18 10:01 Saccharomyces Boulardii (Florastor) 250 mg PO BID [facility] Last Admin: 01/17/18 17:26 Dose: 250 mg - Labs Labs: 01/18/18 07:15 01/18/18 07:15 PT 14.8 SECONDS (9.7-12.2) H 01/18/18 07:15 INR 1.4 01/18/18 07:15 APTT 31 SECONDS (21-34) 01/18/18 07:15 - Constitutional Appears: Non-toxic, No Acute Distress - Head Exam Head Exam: ATRAUMATIC, NORMAL INSPECTION - Eye Exam Eye Exam: EOMI, Normal appearance Pupil Exam: NORMAL ACCOMODATION - ENT Exam ENT Exam: Mucous Membranes Moist - Neck Exam Neck Exam: Full ROM - Respiratory Exam Respiratory Exam: NORMAL BREATHING PATTERN - Cardiovascular Exam Cardiovascular Exam: REGULAR RHYTHM, +S1, +S2 - GI/Abdominal Exam GI & Abdominal Exam: Soft, Normal Bowel Sounds - Extremities Exam Additional comments: left foot dressed and wrapped in kerlix bandage, dorsalis pedis pulses palpable - Back Exam Back Exam: Full ROM - Neurological Exam Neurological Exam: Alert, Awake, Oriented x3 - Psychiatric Exam Psychiatric exam: Normal Affect, Normal Mood - Skin Skin Exam: Dry, Warm Assessment and Plan - Assessment and Plan (Free Text) Assessment: Diabetic foot ulcer Assessment and Plan: Manager Culinary, Dr. Jorge consulted- F/U recommendations. For OR today in light of suspected osteomyelitis F/U ID ( Dr. Moseley) recommendations Imaging Foot X-ray: There is a skin surface and subcutaneous ulcer distal right the toe with destructive changes of distal phalanx consistent with osteomyelitis. C. Surrounding soft tissue swelling. Ulcerative changes distal soft tissues of left great toe with surrounding soft tissue swelling. Soft tissue swelling that extends proximally involving the remainder of the left foot consistent with cellulitis. Foot MRI findings suggestive of Osteomyelitis. F/U blood cultures and wound culture results On Vancomycin 1gm IV Q12H , Zosyn 3.357gm IV Q6H and Florastor 250mg PO BID vanc trough 8.5 on 01/18- collected too early. Will first recheck trough before 4th dosing of vanc. Will adjust medication accordingly afterwards. Monitor EKG Findings- 01/18/18 Repeat EKG shows normal QT interval. CXR- No active disease- questionable bleb noted in right apex region Detsky Score is 0. This is indicative of a 6% chance of cardiologic event during a non-cardiologic surgery. Perez score is 0.02% for cardiac risk. Patient is medically optimized for surgical procedure based on this assessment. Will benefit from PT/OT. F/U recommendations Status: Acute Diabetes mellitus Assessment and Plan: HgbA1C (01/16/18): 9.9 Continue home medication: * Humalog 70/30 25 units ACB * Humalog 70/30 25 units ACD * ISS low dose * Lisinopril 2.5mg PO daily * Accuchecks * Hypoglycemia protocol Status: Acute Anemia Assessment and Plan: Will order iron studies Monitor Hgb. May require transfusion. Status: Acute Low HDL Assessment and Plan: Recommendations for Fibrates or Niacin post surgery with continued management with outpatient doctor. Status: Likely chronic Prophylactic measure Assessment and Plan: GI: Not indicated DVT: SCDs contraindicated. Heparin 5,000 units Q8H - held past midnight until procedure. Will restart per Podiatry recommendations. Discussed with attending. All management and planning per Dr. Erickson.
[2018-01-18] MEDS: Vancomycin 1 gm/NS 200 ml 1 GM/200 ML BAG IVPB SCH ×2 (08:11→20:55)
[2018-01-18] MEDS: Saccharomyces Boulardi 250 mg Cap PO SCH ×2 (09:42→18:02)
[2018-01-18 11:49] LABS: IRON 25 ug/dL (37-170)
[2018-01-18 11:58] LABS: % IRON SATURATION 13 (20-55); TOTAL IRON BINDING CAPACITY 199 ug/dL (250-450)
[2018-01-18] MEDS ORDERED: ceFAZolin 1 gm in NS 0 GM/0 ML BAG IVPB ONE (12:33)
[2018-01-18] MEDS ORDERED: Bupivacaine 0.25% 20 ML INJ IJ ONE ×2 (12:33→14:45)
[2018-01-18] MEDS ORDERED: Lidocaine Hydrochloride 5 ML INJ ONE ×2 (12:33→12:42)
[2018-01-18] MEDS ORDERED: Propofol 10 mg/ml Inj (20 ML) ONE (12:50)
[2018-01-18] MEDS ORDERED: Midazolam 2 MG/2 ML VIAL ONE ×2 (12:50→13:14)
[2018-01-18 12:57] LABS: FOLATE 6.2 ng/mL
[2018-01-18] MEDS ORDERED: Bacitracin 150,000 UNIT in Sodium Chloride 0.9% Irrig 3,000 ML IR SCH (13:15)
--- NOTE | 2018-01-18 14:39 | PCM.SURG1 ---
Surgeon's Initial Post Op Note - Surgeon's Notes Surgeon: Dr. Alka Jorge Stamp Pad Maker: Dr. Julien Garcia PGY-1, Dr. Lindsay Christina PGY-2 Type of Anesthesia: IV Sedation, Local Anesthesia Administered By: Albert BENAVIDEZ/Dr. Emiliano ABDI Pre-Operative Diagnosis: left foot diabetic ulcer with osteomyelitis Operative Findings: see dictation. I: 20cc 1:1 mix 1% Lidocaine plain and 0.25 % marcaine plain; 20cc 0.25% Marcaine plain post-operatively. M: /" Iodoform packing, 2-0 Prolene, betadine-soaked Adaptic, ABD, DSD Post-Operative Diagnosis: same Operation Performed: left foot partial 1st ray resection Specimen/Specimens Removed: left foot 1st toe, 1st metatarsal bone Estimated Blood Loss: EBL {In ML}: 100 Blood Products Given: N/A Drains Used: No Drains Post-Op Condition: Good Date of Surgery/Procedure: 01/18/18 Time of Surgery/Procedure: 14:40
[2018-01-18] MEDS ORDERED: HYDROmorphone 0.5 mg/0.5 ml ISec IVP PRN (14:48)
[2018-01-18] MEDS ORDERED: Lactated Ringer's 1,000 ML IV SCH (15:00)
--- NOTE | 2018-01-18 15:23 | CP.PCM.PN ---
Subjective - Date & Time of Evaluation Date of Evaluation: 01/18/18 Time of Evaluation: 08:00 - Subjective Subjective: s/p 1st ray resection iv rx ordered cont rx of OM Objective - Vital Signs/Intake and Output Vital Signs (last 24 hours): Temp Pulse Resp BP Pulse Ox 98.8 F 86 20 116/77 97 01/18/18 07:00 01/18/18 07:00 01/18/18 07:00 01/18/18 07:00 01/18/18 07:00 Intake and Output: 01/18/18 01/18/18 06:59 18:59 Intake Total 650 1050 Balance 650 1050 - Medications Medications: Current Medications Dextrose (Dextrose 50% Inj) 0 ml IV STAT PRN; Protocol PRN Reason: Hypoglycemia Protocol Dextrose (Glutose 15) 0 gm PO ONCE PRN; Protocol PRN Reason: Hypoglycemia Protocol Glucagon (Glucagen Diagnostic Kit) 0 mg IM STAT PRN; Protocol PRN Reason: Hypoglycemia Protocol Heparin Sodium (Porcine) (Heparin) 5,000 units SC Q8 [facility] Last Admin: 01/17/18 14:32 Dose: 5,000 units Hydromorphone HCl (Dilaudid) 0.5 mg IVP Q10M PRN PRN Reason: Pain, moderate (4-7) Stop: 01/18/18 16:49 Piperacillin Sod/Tazobactam Sod (Zosyn 3.375 Gm Iv Premix) 3.375 gm in 50 mls @ 100 mls/hr IVPB Q6H [facility] PRN Reason: Protocol Last Admin: 01/18/18 11:01 Dose: 100 mls/hr Dextrose (Dextrose 5% In Water 1000 Ml) 1,000 mls @ 0 mls/hr IV .Q0M PRN; Protocol; Per Protocol PRN Reason: Hypoglycemia Protocol Vancomycin/Sodium Chloride (Vancomycin 1 Gm/Ns 200 Ml) 1 gm in 200 mls @ 166.7 mls/hr IVPB Q12H [facility] PRN Reason: Protocol Stop: 01/22/18 08:01 Last Admin: 01/18/18 08:11 Dose: 166.7 mls/hr Lactated Ringer's (Lactated Ringer's) 1,000 mls @ 100 mls/hr IV .Q10H [facility] Insulin Aspart (Novolog Mix 70/30 (70/30 Units/Ml)) 25 units SC ACB [facility] Last Admin: 01/18/18 07:41 Dose: Not Given Insulin Aspart (Novolog Mix 70/30 (70/30 Units/Ml)) 25 units SC ACD [facility] Last Admin: 01/17/18 16:30 Dose: 25 units Insulin Aspart (Novolog) 0 unit SC ACHS [facility] PRN Reason: Protocol Last Admin: 01/18/18 11:22 Dose: Not Given Lisinopril (Zestril) 2.5 mg PO DAILY [facility] Last Admin: 01/18/18 09:45 Dose: 2.5 mg Ondansetron HCl (Zofran Inj) 4 mg IVP ONCE PRN PRN Reason: Nausea/Vomiting Stop: 01/18/18 16:50 Pneumococcal Polyvalent Vaccine (Pneumovax 23 Vaccine) 0.5 ml IM .ONCE ONE Stop: 01/19/18 10:01 Saccharomyces Boulardii (Florastor) 250 mg PO BID [facility] Last Admin: 01/18/18 09:42 Dose: Not Given - Labs Labs: 01/18/18 07:15 01/18/18 07:15 PT 14.8 SECONDS (9.7-12.2) H 01/18/18 07:15 INR 1.4 01/18/18 07:15 APTT 31 SECONDS (21-34) 01/18/18 07:15 - Constitutional Appears: Non-toxic, Chronically Ill - Head Exam Head Exam: NORMOCEPHALIC - Eye Exam Eye Exam: PERRL - ENT Exam ENT Exam: Mucous Membranes Dry - Neck Exam Neck Exam: absent: Lymphadenopathy - Respiratory Exam Respiratory Exam: Decreased Breath Sounds - Cardiovascular Exam Cardiovascular Exam: REGULAR RHYTHM - GI/Abdominal Exam GI & Abdominal Exam: Distended Assessment and Plan (1) Diabetes mellitus Status: Acute (2) Diabetic foot ulcer associated with type 2 diabetes mellitus Status: Acute (3) Osteomyelitis of left foot Status: Acute
--- NOTE | 2018-01-18 15:58 | RAD ---
Date of service: 01/18/2018 PROCEDURE: Left Foot Radiographs. HISTORY: s/p surgery partial 1st ray amp COMPARISON: None. FINDINGS: BONES: Patient status post left 1st transmetatarsal and 1st digit amputation will with postoperative changes seen in the forefoot medial soft tissues. Diffuse osteopenia suggests osteoporosis throughout the remainder of the left foot. No acute fracture, subluxation or dislocation identified. JOINTS: No interval dislocation or subluxation. SOFT TISSUES: As above. OTHER FINDINGS: None. IMPRESSION: And post 1st transmetatarsal amputation including left 1st digit with postop changes as discussed above. Diffuse osteopenia suggests osteoporosis.
[2018-01-18 17:34] LABS: HEMOGLOBIN 8.4 g/dL (11.0-16.0)
[2018-01-18] MEDS: Oxycodone/Acetaminophen 5/325 mg Tab PO PRN (22:06)
[2018-01-19] MEDS: Piperacill/Tazo 3.375gm in Dex 3.375 GM/50 ML BAG IVPB SCH ×4 (05:29→22:24)
--- NOTE | 2018-01-19 07:19 | CP.PCM.PN ---
Subjective - Date & Time of Evaluation Date of Evaluation: 01/19/18 Time of Evaluation: 07:19 - Subjective Subjective: PGY 2 Med Progress Note-Dr. Erickson's service Patient seen and examined in no acute distress. Patient denies complaints. Is ambulating though with discomfort. Patient denies subjective fevers or chills, nausea, vomiting, diarrhea at this time. Objective - Vital Signs/Intake and Output Vital Signs (last 24 hours): Temp Pulse Resp BP Pulse Ox 98.8 F 94 H 18 99/66 L 97 01/19/18 05:00 01/19/18 05:00 01/19/18 05:00 01/19/18 05:00 01/18/18 23:52 Intake and Output: 01/19/18 01/19/18 06:59 18:59 Intake Total 500 Output Total 250 Balance 250 - Medications Medications: Current Medications Acetaminophen (Tylenol 325mg Tab) 650 mg PO Q6 PRN PRN Reason: Pain, Mild (1-3) Last Admin: 01/19/18 00:00 Dose: 650 mg Dextrose (Dextrose 50% Inj) 0 ml IV STAT PRN; Protocol PRN Reason: Hypoglycemia Protocol Dextrose (Glutose 15) 0 gm PO ONCE PRN; Protocol PRN Reason: Hypoglycemia Protocol Glucagon (Glucagen Diagnostic Kit) 0 mg IM STAT PRN; Protocol PRN Reason: Hypoglycemia Protocol Heparin Sodium (Porcine) (Heparin) 5,000 units SC Q8 [facility] Last Admin: 01/17/18 14:32 Dose: 5,000 units Piperacillin Sod/Tazobactam Sod (Zosyn 3.375 Gm Iv Premix) 3.375 gm in 50 mls @ 100 mls/hr IVPB Q6H [facility] PRN Reason: Protocol Last Admin: 01/19/18 05:29 Dose: 100 mls/hr Dextrose (Dextrose 5% In Water 1000 Ml) 1,000 mls @ 0 mls/hr IV .Q0M PRN; Protocol; Per Protocol PRN Reason: Hypoglycemia Protocol Vancomycin/Sodium Chloride (Vancomycin 1 Gm/Ns 200 Ml) 1 gm in 200 mls @ 166.7 mls/hr IVPB Q12H [facility] PRN Reason: Protocol Stop: 01/22/18 08:01 Last Admin: 01/18/18 20:55 Dose: 166.7 mls/hr Lactated Ringer's (Lactated Ringer's) 1,000 mls @ 100 mls/hr IV .Q10H [facility] Last Admin: 01/19/18 01:28 Dose: Not Given Insulin Aspart (Novolog Mix 70/30 (70/30 Units/Ml)) 25 units SC ACB [facility] Last Admin: 01/18/18 07:41 Dose: Not Given Insulin Aspart (Novolog Mix 70/30 (70/30 Units/Ml)) 25 units SC ACD [facility] Last Admin: 01/18/18 17:10 Dose: 25 units Insulin Aspart (Novolog) 0 unit SC ACHS [facility] PRN Reason: Protocol Last Admin: 01/18/18 22:02 Dose: Not Given Lisinopril (Zestril) 2.5 mg PO DAILY [facility] Last Admin: 01/18/18 09:45 Dose: 2.5 mg Oxycodone/Acetaminophen (Percocet 5/325 Mg Tab) 1 tab PO Q4H PRN PRN Reason: Pain, moderate (4-7) Stop: 01/21/18 21:35 Oxycodone/Acetaminophen (Percocet 5/325 Mg Tab) 2 tab PO Q4H PRN PRN Reason: Pain, severe (8-10) Stop: 01/21/18 21:35 Last Admin: 01/18/18 22:06 Dose: 2 tab Pneumococcal Polyvalent Vaccine (Pneumovax 23 Vaccine) 0.5 ml IM .ONCE ONE Stop: 01/19/18 10:01 Saccharomyces Boulardii (Florastor) 250 mg PO BID [facility] Last Admin: 01/18/18 18:02 Dose: 250 mg - Labs Labs: 01/18/18 17:21 01/18/18 07:15 PT 14.8 SECONDS (9.7-12.2) H 01/18/18 07:15 INR 1.4 01/18/18 07:15 APTT 31 SECONDS (21-34) 01/18/18 07:15 Assessment and Plan - Assessment and Plan (Free Text) Plan: S/p left foot partial 1st ray restion Philosophy Instructor, Dr. Jorge consulted- F/U recommendations. F/U ID ( Dr. Moseley) recommendations Imaging Foot X-ray: There is a skin surface and subcutaneous ulcer distal right the toe with destructive changes of distal phalanx consistent with osteomyelitis. C. Surrounding soft tissue swelling. Ulcerative changes distal soft tissues of left great toe with surrounding soft tissue swelling. Soft tissue swelling that extends proximally involving the remainder of the left foot consistent with cellulitis. Foot MRI findings suggestive of Osteomyelitis. F/U blood cultures and wound culture results On Vancomycin 1gm IV Q12H , Zosyn 3.357gm IV Q6H and Florastor 250mg PO BID vanc trough 8.5 on 01/18- collected too early. Repeat Vanc trough 11.6 (01/19/18). For bone ideal trough is 15-20. Will continue regimen. Monitor EKG Findings- 01/18/18 Repeat EKG shows normal QT interval. CXR- No active disease- questionable bleb noted in right apex region Detsky Score is 0. This is indicative of a 6% chance of cardiologic event during a non-cardiologic surgery. Perez score is 0.02% for cardiac risk. Patient is medically optimized for surgical procedure based on this assessment. Will benefit from PT/OT. F/U recommendations Status: Acute Medications: Acetaminophen 650mg PO Q6 PRN Percocet 1 tab po q4 prn 2 tab po q4 prn Diabetes mellitus Assessment and Plan: HgbA1C (01/16/18): 9.9 Continue home medication: * Humalog 70/30 25 units ACB * Humalog 70/30 25 units ACD * ISS low dose * Lisinopril 2.5mg PO daily * Accuchecks * Hypoglycemia protocol Status: Acute Anemia Assessment and Plan: Will order iron studies Monitor Hgb. May require transfusion. Status: Acute Low HDL Assessment and Plan: Recommendations for Fibrates or Niacin post surgery with continued management with outpatient doctor. Status: Likely chronic Prophylactic measure Assessment and Plan: GI: Not indicated DVT: SCDs contraindicated. Heparin 5,000 units Q8H - held Will restart per Podiatry recommendations. Discussed with attending. All management and planning per Dr. Erickson.
[2018-01-19] MEDS: (Novolog) Insulin Aspart, Recombinant 100 u/ml 10 ml vial SC SCH ×4 (07:39→22:22)
[2018-01-19 07:46] LABS: BASO # 0.1 K/uL (0.0-0.2); BASO % 0.8 % (0.0-2.0); EOS # 0.1 K/uL (0.0-0.7); EOS % 0.6 % (0.0-4.0); HEMOGLOBIN 8.6 g/dL (11.0-16.0); LYMPH # 1.7 K/uL (1.0-4.3); MEAN CELL VOLUME 80.6 fL (81.0-99.0); MEAN CORPUSCULAR HEMOGLOBIN 26.8 pg (27.0-31.0); MEAN CORPUSCULAR HGB CONC 33.2 g/dL (33.0-37.0); MEAN PLATELET VOLUME 7.2 fL (7.2-11.7); MONO # 0.8 K/uL (0.0-0.8); MONO % 8.1 % (0.0-10.0); NEUT # 6.8 K/uL (1.8-7.0); NEUT % 72.5 % (50.0-75.0); RBC 3.21 Mil/uL (3.80-5.20)
[2018-01-19 07:47] LABS: WHITE BLOOD COUNT 9.4 K/uL (4.8-10.8)
[2018-01-19 07:59] LABS: ALB/GLOB RATIO 0.8 (1.0-2.1); ALBUMIN 3.2 g/dL (3.5-5.0); ALT/SGPT 15 U/L (9-52); AST/SGOT 22 U/L (14-36); BLOOD UREA NITROGEN 8 mg/dL (7-17); CALCIUM 9.7 mg/dl (8.6-10.4); GFR AFRICAN-AMERICAN > 60; GFR NON-AFRICAN AMERICAN > 60
[2018-01-19 08:00] VITALS: RESP 20
[2018-01-19] MEDS: Oxycodone/Acetaminophen 5/325 mg Tab PO PRN ×2 (08:24→20:00)
[2018-01-19] MEDS: Vancomycin 1 gm/NS 200 ml 1 GM/200 ML BAG IVPB SCH ×2 (08:26→20:00)
[2018-01-19] MEDS: (Novolog Mix 70/30) Insulin Aspart/Insulin Aspar 100 units/ml SC SCH ×2 (08:27→16:30)
[2018-01-19] MEDS: Saccharomyces Boulardi 250 mg Cap PO SCH ×2 (09:57→17:32)
[2018-01-19] MEDS ORDERED: Pneumococcal 23-Valent Vaccine IM ONE (10:00)
--- NOTE | 2018-01-19 12:31 | CP.PCM.PN ---
Subjective - Date & Time of Evaluation Date of Evaluation: 01/19/18 Time of Evaluation: 12:26 - Subjective Subjective: Podiatry progress note for Dr. Jorge 57 y/o female seen at bedside today s/p POD#1 partial amputation of the left 1st ray. Patient was resting comfortably in bed and in no acute distress. Patient denies any acute overnight events. Patient denies any fever, nausea, vomiting. Sero-sanguineous strike through was noted to the dressing Objective - Vital Signs/Intake and Output Vital Signs (last 24 hours): Temp Pulse Resp BP Pulse Ox 98.2 F 86 20 109/71 99 01/19/18 07:59 01/19/18 07:59 01/19/18 07:59 01/19/18 07:59 01/19/18 07:59 Intake and Output: 01/19/18 01/19/18 06:59 18:59 Intake Total 500 Output Total 250 Balance 250 - Medications Medications: Current Medications Acetaminophen (Tylenol 325mg Tab) 650 mg PO Q6 PRN PRN Reason: Pain, Mild (1-3) Last Admin: 01/19/18 00:00 Dose: 650 mg Dextrose (Dextrose 50% Inj) 0 ml IV STAT PRN; Protocol PRN Reason: Hypoglycemia Protocol Dextrose (Glutose 15) 0 gm PO ONCE PRN; Protocol PRN Reason: Hypoglycemia Protocol Glucagon (Glucagen Diagnostic Kit) 0 mg IM STAT PRN; Protocol PRN Reason: Hypoglycemia Protocol Heparin Sodium (Porcine) (Heparin) 5,000 units SC Q8 [facility] Last Admin: 01/17/18 14:32 Dose: 5,000 units Piperacillin Sod/Tazobactam Sod (Zosyn 3.375 Gm Iv Premix) 3.375 gm in 50 mls @ 100 mls/hr IVPB Q6H [facility] PRN Reason: Protocol Last Admin: 01/19/18 10:01 Dose: 100 mls/hr Dextrose (Dextrose 5% In Water 1000 Ml) 1,000 mls @ 0 mls/hr IV .Q0M PRN; Protocol; Per Protocol PRN Reason: Hypoglycemia Protocol Vancomycin/Sodium Chloride (Vancomycin 1 Gm/Ns 200 Ml) 1 gm in 200 mls @ 166.7 mls/hr IVPB Q12H [facility] PRN Reason: Protocol Stop: 01/22/18 08:01 Last Admin: 01/19/18 08:26 Dose: 166.7 mls/hr Lactated Ringer's (Lactated Ringer's) 1,000 mls @ 100 mls/hr IV .Q10H [facility] Last Admin: 01/19/18 01:28 Dose: Not Given Insulin Aspart (Novolog Mix 70/30 (70/30 Units/Ml)) 25 units SC ACB [facility] Last Admin: 01/19/18 08:27 Dose: 25 units Insulin Aspart (Novolog Mix 70/30 (70/30 Units/Ml)) 25 units SC ACD [facility] Last Admin: 01/18/18 17:10 Dose: 25 units Insulin Aspart (Novolog) 0 unit SC ACHS [facility] PRN Reason: Protocol Last Admin: 01/19/18 07:39 Dose: Not Given Lisinopril (Zestril) 2.5 mg PO DAILY [facility] Last Admin: 01/19/18 09:55 Dose: 2.5 mg Oxycodone/Acetaminophen (Percocet 5/325 Mg Tab) 1 tab PO Q4H PRN PRN Reason: Pain, moderate (4-7) Stop: 01/21/18 21:35 Oxycodone/Acetaminophen (Percocet 5/325 Mg Tab) 2 tab PO Q4H PRN PRN Reason: Pain, severe (8-10) Stop: 01/21/18 21:35 Last Admin: 01/19/18 08:24 Dose: 2 tab Saccharomyces Boulardii (Florastor) 250 mg PO BID [facility] Last Admin: 01/19/18 09:57 Dose: 250 mg - Labs Labs: 01/19/18 07:28 01/19/18 07:28 PT 14.8 SECONDS (9.7-12.2) H 01/18/18 07:15 INR 1.4 01/18/18 07:15 APTT 31 SECONDS (21-34) 01/18/18 07:15 - Constitutional Appears: Well, Non-toxic, No Acute Distress - Head Exam Head Exam: ATRAUMATIC, NORMOCEPHALIC - Extremities Exam Additional comments: Left Lower Extremity Exam Vasc: DP/PT pulses palpable 2/4. Temperature gradient warm to cool. CFT < 3 sec x 4; unable to assess to R foot 1st and 2nd digits secondary to possible necrotic changes Derm: surgical incision noted to the medial aspect of the left foot, sutures intact, packing intact and noted with serosanguineous drainage, minimal active draining noted, no malodor, no maceration, hyperkeratotic lesions noted submet 5 Neuro: Protective sensation grossly intact Ortho: Mild-moderate tenderness to palpation of left foot ulcerations. No tenderness to palpation of R foot digits - Neurological Exam Neurological Exam: Alert, Awake, Oriented x3 Assessment and Plan - Assessment and Plan (Free Text) Assessment: 57 y/o female s/p POD#1 partial amputation of the left 1st ray Plan: Patient seen and evaluated at bedside Plan discussed with attending Dr. Jorge Chart, labs and vitals reviewed- WBC 9.4 Wound Cx L foot Staphylococcus, Corneybacterium Species Patient packing change, and surgical site dressed with betadine, ABD, DSD, CIERRA Continue Abx as per recommendation Podiatry will continue to follow patient while in house
--- NOTE | 2018-01-19 14:00 | CARD ---
APPROVED REPORT Date of service: 01/16/2018 EKG Measurement Heart [id number] <Conclusion> Normal sinus rhythm Prolonged QT Abnormal ECG
--- NOTE | 2018-01-19 20:18 | CP.PCM.PN ---
Subjective - Date & Time of Evaluation Date of Evaluation: 01/19/18 Time of Evaluation: 08:00 - Subjective Subjective: wound c/s neg for MRSA ok to d/c Vanco Objective - Vital Signs/Intake and Output Vital Signs (last 24 hours): Temp Pulse Resp BP Pulse Ox 98.2 F 84 20 110/68 98 01/19/18 15:58 01/19/18 15:58 01/19/18 15:58 01/19/18 15:58 01/19/18 15:58 - Medications Medications: Current Medications Acetaminophen (Tylenol 325mg Tab) 650 mg PO Q6 PRN PRN Reason: Pain, Mild (1-3) Last Admin: 01/19/18 00:00 Dose: 650 mg Dextrose (Dextrose 50% Inj) 0 ml IV STAT PRN; Protocol PRN Reason: Hypoglycemia Protocol Dextrose (Glutose 15) 0 gm PO ONCE PRN; Protocol PRN Reason: Hypoglycemia Protocol Glucagon (Glucagen Diagnostic Kit) 0 mg IM STAT PRN; Protocol PRN Reason: Hypoglycemia Protocol Heparin Sodium (Porcine) (Heparin) 5,000 units SC Q8 [facility] Last Admin: 01/17/18 14:32 Dose: 5,000 units Piperacillin Sod/Tazobactam Sod (Zosyn 3.375 Gm Iv Premix) 3.375 gm in 50 mls @ 100 mls/hr IVPB Q6H [facility] PRN Reason: Protocol Last Admin: 01/19/18 17:33 Dose: 100 mls/hr Dextrose (Dextrose 5% In Water 1000 Ml) 1,000 mls @ 0 mls/hr IV .Q0M PRN; Protocol; Per Protocol PRN Reason: Hypoglycemia Protocol Vancomycin/Sodium Chloride (Vancomycin 1 Gm/Ns 200 Ml) 1 gm in 200 mls @ 166.7 mls/hr IVPB Q12H [facility] PRN Reason: Protocol Stop: 01/22/18 08:01 Last Admin: 01/19/18 08:26 Dose: 166.7 mls/hr Insulin Aspart (Novolog Mix 70/30 (70/30 Units/Ml)) 25 units SC ACB [facility] Last Admin: 01/19/18 08:27 Dose: 25 units Insulin Aspart (Novolog Mix 70/30 (70/30 Units/Ml)) 25 units SC ACD [facility] Last Admin: 01/19/18 16:30 Dose: 25 units Insulin Aspart (Novolog) 0 unit SC ACHS [facility] PRN Reason: Protocol Last Admin: 01/19/18 16:30 Dose: Not Given Lisinopril (Zestril) 2.5 mg PO DAILY [facility] Last Admin: 01/19/18 09:55 Dose: 2.5 mg Oxycodone/Acetaminophen (Percocet 5/325 Mg Tab) 1 tab PO Q4H PRN PRN Reason: Pain, moderate (4-7) Stop: 01/21/18 21:35 Oxycodone/Acetaminophen (Percocet 5/325 Mg Tab) 2 tab PO Q4H PRN PRN Reason: Pain, severe (8-10) Stop: 01/21/18 21:35 Last Admin: 01/19/18 08:24 Dose: 2 tab Saccharomyces Boulardii (Florastor) 250 mg PO BID [facility] Last Admin: 01/19/18 17:32 Dose: 250 mg - Labs Labs: 01/19/18 07:28 01/19/18 07:28 PT 14.8 SECONDS (9.7-12.2) H 01/18/18 07:15 INR 1.4 01/18/18 07:15 APTT 31 SECONDS (21-34) 01/18/18 07:15 - Constitutional Appears: Non-toxic - Head Exam Head Exam: NORMOCEPHALIC - Eye Exam Eye Exam: PERRL - ENT Exam ENT Exam: Mucous Membranes Dry - Neck Exam Neck Exam: absent: Lymphadenopathy - Respiratory Exam Respiratory Exam: Decreased Breath Sounds Assessment and Plan (1) Diabetes mellitus Status: Acute (2) Diabetic foot ulcer associated with type 2 diabetes mellitus Status: Acute (3) Osteomyelitis of left foot Status: Acute
[2018-01-20] MEDS: Piperacill/Tazo 3.375gm in Dex 3.375 GM/50 ML BAG IVPB SCH ×4 (04:52→22:15)
--- NOTE | 2018-01-20 06:54 | CP.PCM.PN ---
Subjective - Date & Time of Evaluation Date of Evaluation: 01/20/18 Time of Evaluation: 06:54 - Subjective Subjective: PGY 2 Med Progress Note-Dr. Erickson's service Patient seen and examined in no acute distress. Patient denies complaints. Is ambulating though with discomfort. Patient denies subjective fevers or chills, nausea, vomiting, diarrhea at this time. Objective - Vital Signs/Intake and Output Vital Signs (last 24 hours): Temp Pulse Resp BP Pulse Ox 98.3 F 89 20 110/69 100 01/20/18 00:00 01/20/18 00:00 01/20/18 00:00 01/20/18 00:00 01/20/18 00:00 Intake and Output: 01/19/18 01/20/18 18:59 06:59 Intake Total 300 Balance 300 - Medications Medications: Current Medications Acetaminophen (Tylenol 325mg Tab) 650 mg PO Q6 PRN PRN Reason: Pain, Mild (1-3) Last Admin: 01/19/18 00:00 Dose: 650 mg Dextrose (Dextrose 50% Inj) 0 ml IV STAT PRN; Protocol PRN Reason: Hypoglycemia Protocol Dextrose (Glutose 15) 0 gm PO ONCE PRN; Protocol PRN Reason: Hypoglycemia Protocol Glucagon (Glucagen Diagnostic Kit) 0 mg IM STAT PRN; Protocol PRN Reason: Hypoglycemia Protocol Heparin Sodium (Porcine) (Heparin) 5,000 units SC Q8 [facility] Last Admin: 01/17/18 14:32 Dose: 5,000 units Piperacillin Sod/Tazobactam Sod (Zosyn 3.375 Gm Iv Premix) 3.375 gm in 50 mls @ 100 mls/hr IVPB Q6H [facility] PRN Reason: Protocol Last Admin: 01/20/18 04:52 Dose: 100 mls/hr Vancomycin/Sodium Chloride (Vancomycin 1 Gm/Ns 200 Ml) 1 gm in 200 mls @ 166.7 mls/hr IVPB Q12H [facility] PRN Reason: Protocol Stop: 01/22/18 08:01 Last Admin: 01/19/18 20:00 Dose: 166.7 mls/hr Insulin Aspart (Novolog Mix 70/30 (70/30 Units/Ml)) 25 units SC ACB [facility] Last Admin: 01/19/18 08:27 Dose: 25 units Insulin Aspart (Novolog Mix 70/30 (70/30 Units/Ml)) 25 units SC ACD [facility] Last Admin: 01/19/18 16:30 Dose: 25 units Insulin Aspart (Novolog) 0 unit SC ACHS [facility] PRN Reason: Protocol Last Admin: 01/19/18 22:22 Dose: Not Given Lisinopril (Zestril) 2.5 mg PO DAILY [facility] Last Admin: 01/19/18 09:55 Dose: 2.5 mg Oxycodone/Acetaminophen (Percocet 5/325 Mg Tab) 1 tab PO Q4H PRN PRN Reason: Pain, moderate (4-7) Stop: 01/21/18 21:35 Last Admin: 01/19/18 20:00 Dose: 1 tab Oxycodone/Acetaminophen (Percocet 5/325 Mg Tab) 2 tab PO Q4H PRN PRN Reason: Pain, severe (8-10) Stop: 01/21/18 21:35 Last Admin: 01/19/18 08:24 Dose: 2 tab Saccharomyces Boulardii (Florastor) 250 mg PO BID [facility] Last Admin: 01/19/18 17:32 Dose: 250 mg - Labs Labs: 01/19/18 07:28 01/19/18 07:28 PT 14.8 SECONDS (9.7-12.2) H 01/18/18 07:15 INR 1.4 01/18/18 07:15 APTT 31 SECONDS (21-34) 01/18/18 07:15 - Head Exam Head Exam: ATRAUMATIC, NORMAL INSPECTION, NORMOCEPHALIC - Eye Exam Eye Exam: EOMI, Normal appearance, PERRL Pupil Exam: NORMAL ACCOMODATION - ENT Exam ENT Exam: Mucous Membranes Moist, Normal Oropharynx - Respiratory Exam Respiratory Exam: Clear to Ausculation Bilateral, NORMAL BREATHING PATTERN. absent: Respiratory Distress - Cardiovascular Exam Cardiovascular Exam: REGULAR RHYTHM, +S1, +S2 - GI/Abdominal Exam GI & Abdominal Exam: Soft, Normal Bowel Sounds. absent: Hyperactive Bowel Sounds - Extremities Exam Extremities Exam: Full ROM, Normal Inspection. absent: Pedal Edema - Back Exam Back Exam: NORMAL INSPECTION. absent: CVA tenderness (L), CVA tenderness (R), paraspinal tenderness - Neurological Exam Neurological Exam: Alert, Awake, CN II-XII Intact, Oriented x3 - Psychiatric Exam Psychiatric exam: Normal Affect, Normal Mood Assessment and Plan - Assessment and Plan (Free Text) Plan: S/p left foot partial 1st ray restion [employer] Research Assistant, Dr. Jorge consulted- F/U recommendations. F/U ID ( Dr. Moseley) recommendations Imaging Foot X-ray: There is a skin surface and subcutaneous ulcer distal right the toe with destructive changes of distal phalanx consistent with osteomyelitis. C. Surrounding soft tissue swelling. Ulcerative changes distal soft tissues of left great toe with surrounding soft tissue swelling. Soft tissue swelling that extends proximally involving the remainder of the left foot consistent with cellulitis. Foot MRI findings suggestive of Osteomyelitis. F/U blood cultures and wound culture results On Vancomycin 1gm IV Q12H , Zosyn 3.357gm IV Q6H and Florastor 250mg PO BID vanc trough 8.5 on 01/18- collected too early. Repeat Vanc trough 11.6 (01/19/18). For bone ideal trough is 15-20. Will continue regimen. Monitor EKG Findings- 01/18/18 Repeat EKG shows normal QT interval. CXR- No active disease- questionable bleb noted in right apex region Detsky Score is 0. This is indicative of a 6% chance of cardiologic event during a non-cardiologic surgery. Perez score is 0.02% for cardiac risk. Patient is medically optimized for surgical procedure based on this assessment. Will benefit from PT/OT. F/U recommendations Status: Acute Medications: Acetaminophen 650mg PO Q6 PRN Percocet 1 tab po q4 prn 2 tab po q4 prn Diabetes mellitus Assessment and Plan: HgbA1C (01/16/18): 9.9 Continue home medication: * Humalog 70/30 25 units ACB * Humalog 70/30 25 units ACD * ISS low dose * Lisinopril 2.5mg PO daily * Accuchecks * Hypoglycemia protocol Status: Acute Anemia Assessment and Plan: Hgb 7 today. Down from 8.6 today. Iron studies: Iron:25 TIBC:199 % Saturation :13 Type and screen. Ordered 1 unit of blood today. Monitor Hgb. May require more transfusions in the future. Transfuse if HgB below 7. Status: Acute Low HDL Assessment and Plan: Recommendations for Fibrates or Niacin post surgery with continued management with outpatient doctor. Status: Likely chronic Prophylactic measure Assessment and Plan: GI: Not indicated DVT: SCDs contraindicated. Heparin 5,000 units Q8H - held Will restart per Podiatry recommendations. Discussed with attending. All management and planning per Dr. Erickson.
[2018-01-20] MEDS: (Novolog) Insulin Aspart, Recombinant 100 u/ml 10 ml vial SC SCH ×4 (07:55→21:55)
[2018-01-20] MEDS: (Novolog Mix 70/30) Insulin Aspart/Insulin Aspar 100 units/ml SC SCH ×2 (08:30→16:30)
[2018-01-20] MEDS: Vancomycin 1 gm/NS 200 ml 1 GM/200 ML BAG IVPB SCH ×2 (08:31→20:00)
[2018-01-20 09:31] LABS: BASO % 0.6 % (0.0-2.0); EOS # 0.2 K/uL (0.0-0.7); EOS % 1.9 % (0.0-4.0); LYMPH # 1.8 K/uL (1.0-4.3); LYMPH % 22.5 % (20.0-40.0); MEAN CELL VOLUME 79.7 fL (81.0-99.0); MEAN CORPUSCULAR HEMOGLOBIN 25.9 pg (27.0-31.0); MEAN CORPUSCULAR HGB CONC 32.5 g/dL (33.0-37.0); MEAN PLATELET VOLUME 6.8 fL (7.2-11.7); MONO # 0.6 K/uL (0.0-0.8); MONO % 6.9 % (0.0-10.0); NEUT # 5.4 K/uL (1.8-7.0); NEUT % 68.1 % (50.0-75.0); RBC 2.71 Mil/uL (3.80-5.20)
[2018-01-20] MEDS: Saccharomyces Boulardi 250 mg Cap PO SCH ×2 (09:35→17:41)
[2018-01-20 09:52] LABS: ALB/GLOB RATIO 0.8 (1.0-2.1); ALBUMIN 2.8 g/dL (3.5-5.0); ALT/SGPT 19 U/L (9-52); AST/SGOT 14 U/L (14-36); BLOOD UREA NITROGEN 6 mg/dL (7-17); CALCIUM 9.4 mg/dl (8.6-10.4); GFR AFRICAN-AMERICAN > 60; GFR NON-AFRICAN AMERICAN > 60
--- NOTE | 2018-01-20 12:24 | CP.PCM.PN ---
Subjective - Date & Time of Evaluation Date of Evaluation: 01/20/18 Time of Evaluation: 12:24 - Subjective Subjective: Podiatry Progress Note - Dr. Jorge 57 y/o female seen at bedside today, 2 days s/p left foot partial first ray amputation. Pt resting in bed at time of visit, receiving blood transfusion. States she feels slightly fatigued today. Denies walking on the left foot. Denies pain at present to the lower extremities. Denies F/C/N/V/CP/SOB Objective - Vital Signs/Intake and Output Vital Signs (last 24 hours): Temp Pulse Resp BP Pulse Ox 98.1 F 78 20 122/77 97 01/20/18 08:09 01/20/18 08:09 01/20/18 08:09 01/20/18 08:09 01/20/18 08:09 Intake and Output: 01/20/18 01/20/18 06:59 18:59 Intake Total 300 Balance 300 - Medications Medications: Current Medications Acetaminophen (Tylenol 325mg Tab) 650 mg PO Q6 PRN PRN Reason: Pain, Mild (1-3) Last Admin: 01/19/18 00:00 Dose: 650 mg Dextrose (Dextrose 50% Inj) 0 ml IV STAT PRN; Protocol PRN Reason: Hypoglycemia Protocol Dextrose (Glutose 15) 0 gm PO ONCE PRN; Protocol PRN Reason: Hypoglycemia Protocol Glucagon (Glucagen Diagnostic Kit) 0 mg IM STAT PRN; Protocol PRN Reason: Hypoglycemia Protocol Heparin Sodium (Porcine) (Heparin) 5,000 units SC Q8 [facility] Last Admin: 01/17/18 14:32 Dose: 5,000 units Piperacillin Sod/Tazobactam Sod (Zosyn 3.375 Gm Iv Premix) 3.375 gm in 50 mls @ 100 mls/hr IVPB Q6H [facility] PRN Reason: Protocol Last Admin: 01/20/18 11:41 Dose: 100 mls/hr Vancomycin/Sodium Chloride (Vancomycin 1 Gm/Ns 200 Ml) 1 gm in 200 mls @ 166.7 mls/hr IVPB Q12H [facility] PRN Reason: Protocol Stop: 01/22/18 08:01 Last Admin: 01/20/18 08:31 Dose: 166.7 mls/hr Insulin Aspart (Novolog Mix 70/30 (70/30 Units/Ml)) 25 units SC ACB [facility] Last Admin: 01/20/18 08:30 Dose: 25 units Insulin Aspart (Novolog Mix 70/30 (70/30 Units/Ml)) 25 units SC ACD [facility] Last Admin: 01/19/18 16:30 Dose: 25 units Insulin Aspart (Novolog) 0 unit SC ACHS [facility] PRN Reason: Protocol Last Admin: 01/20/18 11:38 Dose: Not Given Lisinopril (Zestril) 2.5 mg PO DAILY [facility] Last Admin: 01/20/18 09:35 Dose: 2.5 mg Oxycodone/Acetaminophen (Percocet 5/325 Mg Tab) 1 tab PO Q4H PRN PRN Reason: Pain, moderate (4-7) Stop: 01/21/18 21:35 Last Admin: 01/19/18 20:00 Dose: 1 tab Oxycodone/Acetaminophen (Percocet 5/325 Mg Tab) 2 tab PO Q4H PRN PRN Reason: Pain, severe (8-10) Stop: 01/21/18 21:35 Last Admin: 01/19/18 08:24 Dose: 2 tab Saccharomyces Boulardii (Florastor) 250 mg PO BID [facility] Last Admin: 01/20/18 09:35 Dose: 250 mg - Labs Labs: 01/20/18 09:22 01/20/18 09:22 PT 14.8 SECONDS (9.7-12.2) H 01/18/18 07:15 INR 1.4 01/18/18 07:15 APTT 31 SECONDS (21-34) 01/18/18 07:15 - Constitutional Appears: Well, Non-toxic, No Acute Distress - Extremities Exam Additional comments: Left Lower Extremity Examination: Vasc: DP/PT pulses palpable 2/4. Temperature gradient warm to cool. CFT < 3 sec x 4; unable to assess to R foot 1st and 2nd digits secondary to possible necrotic changes Derm: Surgical incision noted to the medial aspect of the left foot. Surgical sutures intact to distal 3/4 of surgical incision. Iodoform packing intact and noted with serosanguinous drainage. No malodor noted. Proximal 1/4 of surgical site exhibits significant maceration Hyperkeratotic lesions noted submet 5 Neuro: Protective sensation grossly intact Ortho: Mild-moderate tenderness to palpation of left foot ulcerations. No tenderness to palpation of R foot digits - Neurological Exam Neurological Exam: Alert, Awake, Oriented x3 - Psychiatric Exam Psychiatric exam: Normal Affect, Normal Mood Assessment and Plan - Assessment and Plan (Free Text) Assessment: 57 y/o female 2 days s/p partial amputation of the left foot 1st ray Plan: Patient seen and evaluated at bedside Plan discussed with attending Dr. Jorge Hgb 7.0 this AM --> pt transfused 1 unit PRBC today Will continue to monitor H/H Wound Cx L foot Staphylococcus, Corneybacterium Species Iodoform packing removed from surgical site Surgical wound cleaned with saline and dressed with betadine, ABD, DSD, CIERRA Continue IV Abx as per ID - pt likely to go to subacute rehab Upon discharge, pt advised to follow up weekly in [facility] [place] [facility] w/ Dr. Jorge Podiatry will continue to follow patient while in house
[2018-01-20] MEDS: Oxycodone/Acetaminophen 5/325 mg Tab PO PRN ×2 (14:59→22:12)
--- NOTE | 2018-01-20 17:58 | CP.PCM.PN ---
Subjective - Date & Time of Evaluation Date of Evaluation: 01/20/18 Time of Evaluation: 08:00 - Subjective Subjective: 57 y/o female seen at bedside today, 2 days s/p left foot partial first ray amputation. Objective - Vital Signs/Intake and Output Vital Signs (last 24 hours): Temp Pulse Resp BP Pulse Ox 99.5 F 94 H 20 137/81 100 01/20/18 16:34 01/20/18 16:34 01/20/18 16:34 01/20/18 16:34 01/20/18 16:34 Intake and Output: 01/20/18 01/20/18 06:59 18:59 Intake Total 300 905 Balance 300 905 - Medications Medications: Current Medications Acetaminophen (Tylenol 325mg Tab) 650 mg PO Q6 PRN PRN Reason: Pain, Mild (1-3) Last Admin: 01/19/18 00:00 Dose: 650 mg Dextrose (Dextrose 50% Inj) 0 ml IV STAT PRN; Protocol PRN Reason: Hypoglycemia Protocol Dextrose (Glutose 15) 0 gm PO ONCE PRN; Protocol PRN Reason: Hypoglycemia Protocol Glucagon (Glucagen Diagnostic Kit) 0 mg IM STAT PRN; Protocol PRN Reason: Hypoglycemia Protocol Heparin Sodium (Porcine) (Heparin) 5,000 units SC Q8 [facility] Last Admin: 01/17/18 14:32 Dose: 5,000 units Piperacillin Sod/Tazobactam Sod (Zosyn 3.375 Gm Iv Premix) 3.375 gm in 50 mls @ 100 mls/hr IVPB Q6H [facility] PRN Reason: Protocol Last Admin: 01/20/18 17:00 Dose: 100 mls/hr Vancomycin/Sodium Chloride (Vancomycin 1 Gm/Ns 200 Ml) 1 gm in 200 mls @ 166.7 mls/hr IVPB Q12H [facility] PRN Reason: Protocol Stop: 01/22/18 08:01 Last Admin: 01/20/18 08:31 Dose: 166.7 mls/hr Insulin Aspart (Novolog Mix 70/30 (70/30 Units/Ml)) 25 units SC ACB [facility] Last Admin: 01/20/18 08:30 Dose: 25 units Insulin Aspart (Novolog Mix 70/30 (70/30 Units/Ml)) 25 units SC ACD [facility] Last Admin: 01/20/18 16:30 Dose: Not Given Insulin Aspart (Novolog) 0 unit SC ACHS [facility] PRN Reason: Protocol Last Admin: 01/20/18 16:30 Dose: Not Given Lisinopril (Zestril) 2.5 mg PO DAILY [facility] Last Admin: 01/20/18 09:35 Dose: 2.5 mg Oxycodone/Acetaminophen (Percocet 5/325 Mg Tab) 1 tab PO Q4H PRN PRN Reason: Pain, moderate (4-7) Stop: 01/21/18 21:35 Last Admin: 01/20/18 14:59 Dose: 1 tab Oxycodone/Acetaminophen (Percocet 5/325 Mg Tab) 2 tab PO Q4H PRN PRN Reason: Pain, severe (8-10) Stop: 01/21/18 21:35 Last Admin: 01/19/18 08:24 Dose: 2 tab Saccharomyces Boulardii (Florastor) 250 mg PO BID [facility] Last Admin: 01/20/18 17:41 Dose: 250 mg - Labs Labs: 01/20/18 09:22 01/20/18 09:22 PT 14.8 SECONDS (9.7-12.2) H 01/18/18 07:15 INR 1.4 01/18/18 07:15 APTT 31 SECONDS (21-34) 01/18/18 07:15 - Constitutional Appears: Non-toxic, Chronically Ill - Head Exam Head Exam: NORMOCEPHALIC - Eye Exam Eye Exam: PERRL - ENT Exam ENT Exam: Mucous Membranes Dry - Neck Exam Neck Exam: absent: Lymphadenopathy - Respiratory Exam Respiratory Exam: Decreased Breath Sounds - Cardiovascular Exam Cardiovascular Exam: REGULAR RHYTHM - GI/Abdominal Exam GI & Abdominal Exam: Distended, Soft - Rectal Exam Rectal Exam: Deferred - Exam Exam: NORMAL INSPECTION Assessment and Plan (1) Diabetes mellitus Status: Acute (2) Diabetic foot ulcer associated with type 2 diabetes mellitus Status: Acute (3) Osteomyelitis of left foot Status: Acute - Assessment and Plan (Free Text) Assessment: iv rx in progress
[2018-01-21] MEDS: Piperacill/Tazo 3.375gm in Dex 3.375 GM/50 ML BAG IVPB SCH ×4 (05:44→22:02)
[2018-01-21 06:31] LABS: BASO # 0.1 K/uL (0.0-0.2); BASO % 1.4 % (0.0-2.0); EOS # 0.2 K/uL (0.0-0.7); EOS % 2.8 % (0.0-4.0); HEMOGLOBIN 8.1 g/dL (11.0-16.0); LYMPH # 1.9 K/uL (1.0-4.3); LYMPH % 22.9 % (20.0-40.0); MEAN CELL VOLUME 80.6 fL (81.0-99.0); MEAN CORPUSCULAR HEMOGLOBIN 26.7 pg (27.0-31.0); MEAN CORPUSCULAR HGB CONC 33.2 g/dL (33.0-37.0); MONO # 0.6 K/uL (0.0-0.8); MONO % 7.2 % (0.0-10.0); NEUT # 5.5 K/uL (1.8-7.0); NEUT % 65.7 % (50.0-75.0); NRBC % 0.1 % (0.0-2.0); RBC 3.03 Mil/uL (3.80-5.20); RED CELL DISTRIBUTION WIDTH 15.2 % (11.5-14.5); WHITE BLOOD COUNT 8.3 K/uL (4.8-10.8)
[2018-01-21 06:50] LABS: BLOOD UREA NITROGEN 6 mg/dL (7-17); CALCIUM 9.8 mg/dl (8.6-10.4); GFR AFRICAN-AMERICAN > 60; GFR NON-AFRICAN AMERICAN > 60
[2018-01-21] MEDS: Oxycodone/Acetaminophen 5/325 mg Tab PO PRN ×2 (07:04→18:08)
[2018-01-21] MEDS: (Novolog) Insulin Aspart, Recombinant 100 u/ml 10 ml vial SC SCH ×4 (08:10→21:56)
[2018-01-21] MEDS: Vancomycin 1 gm/NS 200 ml 1 GM/200 ML BAG IVPB SCH ×2 (08:26→20:15)
[2018-01-21] MEDS: (Novolog Mix 70/30) Insulin Aspart/Insulin Aspar 100 units/ml SC SCH ×2 (08:26→16:46)
[2018-01-21] MEDS: Saccharomyces Boulardi 250 mg Cap PO SCH ×2 (10:04→17:23)
--- NOTE | 2018-01-21 18:30 | CP.PCM.PN ---
Subjective - Date & Time of Evaluation Date of Evaluation: 01/21/18 Time of Evaluation: 18:27 - Subjective Subjective: Podiatry Progress Note - Dr. Jorge 57 y/o female seen at bedside today, 3 days s/p left foot partial first ray amputation. Pt resting in bed at time of visit along with her friend. Denies walking on the left foot. Denies pain at present to the lower extremities. Denies F/C/N/V/CP/SOB. Objective - Vital Signs/Intake and Output Vital Signs (last 24 hours): Temp Pulse Resp BP Pulse Ox 98.2 F 83 20 127/76 99 01/21/18 16:09 01/21/18 16:09 01/21/18 16:09 01/21/18 16:09 01/21/18 16:09 Intake and Output: 01/21/18 01/21/18 06:59 18:59 Intake Total 600 Balance 600 - Medications Medications: Current Medications Acetaminophen (Tylenol 325mg Tab) 650 mg PO Q6 PRN PRN Reason: Pain, Mild (1-3) Last Admin: 01/19/18 00:00 Dose: 650 mg Dextrose (Dextrose 50% Inj) 0 ml IV STAT PRN; Protocol PRN Reason: Hypoglycemia Protocol Dextrose (Glutose 15) 0 gm PO ONCE PRN; Protocol PRN Reason: Hypoglycemia Protocol Glucagon (Glucagen Diagnostic Kit) 0 mg IM STAT PRN; Protocol PRN Reason: Hypoglycemia Protocol Heparin Sodium (Porcine) (Heparin) 5,000 units SC Q8 [facility] Last Admin: 01/17/18 14:32 Dose: 5,000 units Piperacillin Sod/Tazobactam Sod (Zosyn 3.375 Gm Iv Premix) 3.375 gm in 50 mls @ 100 mls/hr IVPB Q6H [facility] PRN Reason: Protocol Last Admin: 01/21/18 16:41 Dose: 100 mls/hr Vancomycin/Sodium Chloride (Vancomycin 1 Gm/Ns 200 Ml) 1 gm in 200 mls @ 166.7 mls/hr IVPB Q12H [facility] PRN Reason: Protocol Stop: 01/22/18 08:01 Last Admin: 01/21/18 08:26 Dose: 166.7 mls/hr Insulin Aspart (Novolog Mix 70/30 (70/30 Units/Ml)) 25 units SC ACB [facility] Last Admin: 01/21/18 08:26 Dose: 25 units Insulin Aspart (Novolog Mix 70/30 (70/30 Units/Ml)) 25 units SC ACD [facility] Last Admin: 01/21/18 16:46 Dose: 25 units Insulin Aspart (Novolog) 0 unit SC ACHS [facility] PRN Reason: Protocol Last Admin: 01/21/18 12:10 Dose: Not Given Lisinopril (Zestril) 2.5 mg PO DAILY [facility] Last Admin: 01/21/18 10:04 Dose: 2.5 mg Oxycodone/Acetaminophen (Percocet 5/325 Mg Tab) 1 tab PO Q4H PRN PRN Reason: Pain, moderate (4-7) Stop: 01/21/18 21:35 Last Admin: 01/21/18 07:04 Dose: 1 tab Oxycodone/Acetaminophen (Percocet 5/325 Mg Tab) 2 tab PO Q4H PRN PRN Reason: Pain, severe (8-10) Stop: 01/21/18 21:35 Last Admin: 01/21/18 18:08 Dose: 2 tab Saccharomyces Boulardii (Florastor) 250 mg PO BID [facility] Last Admin: 01/21/18 17:23 Dose: 250 mg - Labs Labs: 01/21/18 06:18 01/21/18 06:18 PT 14.8 SECONDS (9.7-12.2) H 01/18/18 07:15 INR 1.4 01/18/18 07:15 APTT 31 SECONDS (21-34) 01/18/18 07:15 - Constitutional Appears: Well, Non-toxic, No Acute Distress - Head Exam Head Exam: ATRAUMATIC, NORMOCEPHALIC - Extremities Exam Additional comments: Left Lower Extremity Examination: Vasc: DP/PT pulses palpable 2/4. Temperature gradient warm to cool. CFT < 3 sec x 4; unable to assess to R foot 1st and 2nd digits secondary to possible necrotic changes, non pitting edema noted to the medial aspect of the midfoot and forefoot Derm: Surgical incision noted to the medial aspect of the left foot. Surgical sutures intact to distal 3/4 of surgical incision. Proximal 1/4 of surgical site exhibits significant maceration Hyperkeratotic lesions noted submet 5 Neuro: Protective sensation grossly intact Ortho: Mild-moderate tenderness to palpation of left foot ulcerations. No tenderness to palpation of R foot digits - Neurological Exam Neurological Exam: Alert, Awake, Oriented x3 - Psychiatric Exam Psychiatric exam: Normal Affect, Normal Mood Assessment and Plan - Assessment and Plan (Free Text) Assessment: 57 y/o female 3 days s/p partial amputation of the left foot 1st ray Plan: Patient seen and evaluated at bedside Plan discussed with attending Dr. Jorge Hg 8.1 hct 24.5; will continue to monitor Wound Cx L foot Staphylococcus, Corneybacterium Species Surgical wound cleaned with saline and dressed with betadine, ABD, DSD, CIERRA Continue IV Abx as per ID - pt likely to go to subacute rehab Upon discharge, pt advised to follow up weekly in [facility] w/ Dr. Jorge Podiatry will continue to follow patient while in house
[2018-01-22] MEDS ORDERED: Tramadol 25 mg PO ONE (01:24)
[2018-01-22] MEDS: Piperacill/Tazo 3.375gm in Dex 3.375 GM/50 ML BAG IVPB SCH ×2 (04:59→10:39)
[2018-01-22] MEDS: (Novolog) Insulin Aspart, Recombinant 100 u/ml 10 ml vial SC SCH ×4 (07:40→22:25)
[2018-01-22] MEDS: (Novolog Mix 70/30) Insulin Aspart/Insulin Aspar 100 units/ml SC SCH ×2 (08:01→17:10)
[2018-01-22] MEDS: Vancomycin 1 gm/NS 200 ml 1 GM/200 ML BAG IVPB SCH ×2 (08:02→19:59)
[2018-01-22] MEDS: Saccharomyces Boulardi 250 mg Cap PO SCH ×2 (09:51→17:31)
[2018-01-22] MEDS ORDERED: Oxycodone/Acetaminophen 5/325 mg Tab PO PRN (11:03)
--- NOTE | 2018-01-22 14:43 | CP.PCM.PN ---
Subjective - Date & Time of Evaluation Date of Evaluation: 01/22/18 Time of Evaluation: 08:00 - Subjective Subjective: 57 y/o female seen at bedside today, 3 days s/p left foot partial first ray amputation iv rx renewed denies fever Objective - Vital Signs/Intake and Output Vital Signs (last 24 hours): Temp Pulse Resp BP Pulse Ox 98.1 F 86 20 111/68 99 01/22/18 08:00 01/22/18 08:00 01/22/18 08:00 01/22/18 08:00 01/22/18 08:00 Intake and Output: 01/22/18 01/22/18 06:59 18:59 Intake Total 1100 Output Total 500 Balance 600 - Medications Medications: Current Medications Acetaminophen (Tylenol 325mg Tab) 650 mg PO Q6 PRN PRN Reason: Pain, Mild (1-3) Last Admin: 01/19/18 00:00 Dose: 650 mg Dextrose (Dextrose 50% Inj) 0 ml IV STAT PRN; Protocol PRN Reason: Hypoglycemia Protocol Dextrose (Glutose 15) 0 gm PO ONCE PRN; Protocol PRN Reason: Hypoglycemia Protocol Glucagon (Glucagen Diagnostic Kit) 0 mg IM STAT PRN; Protocol PRN Reason: Hypoglycemia Protocol Heparin Sodium (Porcine) (Heparin) 5,000 units SC Q8 [facility] Last Admin: 01/17/18 14:32 Dose: 5,000 units Piperacillin Sod/Tazobactam Sod (Zosyn 3.375 Gm Iv Premix) 3.375 gm in 50 mls @ 100 mls/hr IVPB Q6H [facility] PRN Reason: Protocol Last Admin: 01/22/18 10:39 Dose: 100 mls/hr Insulin Aspart (Novolog Mix 70/30 (70/30 Units/Ml)) 25 units SC ACB [facility] Last Admin: 01/22/18 08:01 Dose: 25 units Insulin Aspart (Novolog Mix 70/30 (70/30 Units/Ml)) 25 units SC ACD [facility] Last Admin: 01/21/18 16:46 Dose: 25 units Insulin Aspart (Novolog) 0 unit SC ACHS [facility] PRN Reason: Protocol Last Admin: 01/22/18 11:33 Dose: Not Given Lisinopril (Zestril) 2.5 mg PO DAILY [facility] Last Admin: 01/22/18 09:51 Dose: 2.5 mg Oxycodone/Acetaminophen (Percocet 5/325 Mg Tab) 1 tab PO Q4H PRN PRN Reason: Pain, moderate (4-7) Stop: 01/25/18 11:04 Oxycodone/Acetaminophen (Percocet 5/325 Mg Tab) 2 tab PO Q4H PRN PRN Reason: Pain, severe (8-10) Stop: 01/25/18 11:05 Saccharomyces Boulardii (Florastor) 250 mg PO BID [facility] Last Admin: 01/22/18 09:51 Dose: 250 mg - Labs Labs: 01/21/18 06:18 01/21/18 06:18 PT 14.8 SECONDS (9.7-12.2) H 01/18/18 07:15 INR 1.4 01/18/18 07:15 APTT 31 SECONDS (21-34) 01/18/18 07:15 - Constitutional Appears: Non-toxic, Chronically Ill - Head Exam Head Exam: NORMOCEPHALIC - Eye Exam Pupil Exam: NORMAL ACCOMODATION - ENT Exam ENT Exam: Mucous Membranes Dry - Neck Exam Neck Exam: absent: Lymphadenopathy - Respiratory Exam Respiratory Exam: Decreased Breath Sounds - Cardiovascular Exam Cardiovascular Exam: REGULAR RHYTHM - Rectal Exam Rectal Exam: Deferred Assessment and Plan (1) Diabetes mellitus Status: Acute (2) Diabetic foot ulcer associated with type 2 diabetes mellitus Status: Acute (3) Osteomyelitis of left foot Status: Acute - Assessment and Plan (Free Text) Assessment: cont iv rx for 6 - 8 weeks
--- NOTE | 2018-01-22 15:25 | CP.PCM.PN ---
Subjective - Date & Time of Evaluation Date of Evaluation: 01/22/18 Time of Evaluation: 15:22 - Subjective Subjective: Podiatry Progress Note - Dr. Jorge 57 y/o female seen at bedside today, 4 days s/p left foot partial first ray amputation. Pt resting in bed at time of visit. Denies ambulating on the left foot. Denies pain at present to the lower extremities. Patients dressing soaked with serous drainage, however intact. Denies F/C/N/V/CP/SOB. Objective - Vital Signs/Intake and Output Vital Signs (last 24 hours): Temp Pulse Resp BP Pulse Ox 98.1 F 86 20 111/68 99 01/22/18 08:00 01/22/18 08:00 01/22/18 08:00 01/22/18 08:00 01/22/18 08:00 Intake and Output: 01/22/18 01/22/18 06:59 18:59 Intake Total 1100 Output Total 500 Balance 600 - Medications Medications: Current Medications Acetaminophen (Tylenol 325mg Tab) 650 mg PO Q6 PRN PRN Reason: Pain, Mild (1-3) Last Admin: 01/19/18 00:00 Dose: 650 mg Dextrose (Dextrose 50% Inj) 0 ml IV STAT PRN; Protocol PRN Reason: Hypoglycemia Protocol Dextrose (Glutose 15) 0 gm PO ONCE PRN; Protocol PRN Reason: Hypoglycemia Protocol Glucagon (Glucagen Diagnostic Kit) 0 mg IM STAT PRN; Protocol PRN Reason: Hypoglycemia Protocol Heparin Sodium (Porcine) (Heparin) 5,000 units SC Q8 [facility] Last Admin: 01/17/18 14:32 Dose: 5,000 units Piperacillin Sod/Tazobactam Sod (Zosyn 3.375 Gm Iv Premix) 3.375 gm in 50 mls @ 100 mls/hr IVPB Q6H [facility]PH[facility]IE PRN Reason: Protocol Last Admin: 01/22/18 10:39 Dose: 100 mls/hr Vancomycin/Sodium Chloride (Vancomycin 1 Gm/Ns 200 Ml) 1 gm in 200 mls @ 133.333 mls/hr IVPB Q12H [facility]IE PRN Reason: Protocol Stop: 01/27/18 20:01 Insulin Aspart (Novolog Mix 70/30 (70/30 Units/Ml)) 25 units SC ACB [facility] Last Admin: 01/22/18 08:01 Dose: 25 units Insulin Aspart (Novolog Mix 70/30 (70/30 Units/Ml)) 25 units SC ACD [facility] Last Admin: 01/21/18 16:46 Dose: 25 units Insulin Aspart (Novolog) 0 unit SC ACHS [facility] PRN Reason: Protocol Last Admin: 01/22/18 11:33 Dose: Not Given Lisinopril (Zestril) 2.5 mg PO DAILY [facility] Last Admin: 01/22/18 09:51 Dose: 2.5 mg Oxycodone/Acetaminophen (Percocet 5/325 Mg Tab) 1 tab PO Q4H PRN PRN Reason: Pain, moderate (4-7) Stop: 01/25/18 11:04 Oxycodone/Acetaminophen (Percocet 5/325 Mg Tab) 2 tab PO Q4H PRN PRN Reason: Pain, severe (8-10) Stop: 01/25/18 11:05 Saccharomyces Boulardii (Florastor) 250 mg PO BID [facility] Last Admin: 01/22/18 09:51 Dose: 250 mg - Labs Labs: 01/21/18 06:18 01/21/18 06:18 PT 14.8 SECONDS (9.7-12.2) H 01/18/18 07:15 INR 1.4 01/18/18 07:15 APTT 31 SECONDS (21-34) 01/18/18 07:15 - Constitutional Appears: Well, Non-toxic, No Acute Distress - Head Exam Head Exam: ATRAUMATIC, NORMOCEPHALIC - Extremities Exam Additional comments: Left Lower Extremity Examination: Vasc: DP/PT pulses palpable 2/4. Temperature gradient warm to cool. CFT < 3 sec x 4; unable to assess to R foot 1st and 2nd digits secondary to possible necrotic changes, non pitting edema noted to the medial aspect of the midfoot and forefoot Derm: Surgical incision noted to the medial aspect of the left foot. Surgical sutures intact to distal 3/4 of surgical incision. Proximal 1/4 of surgical site exhibits significant maceration Hyperkeratotic lesions noted submet 5 Neuro: Protective sensation grossly intact Ortho: Mild-moderate tenderness to palpation of left foot ulcerations. No tenderness to palpation of R foot digits - Neurological Exam Neurological Exam: Alert, Awake, Oriented x3 - Psychiatric Exam Psychiatric exam: Normal Affect, Normal Mood Assessment and Plan - Assessment and Plan (Free Text) Assessment: 57 y/o female 3 days s/p partial amputation of the left foot 1st ray Plan: Patient seen and evaluated at bedside Plan discussed with attending Dr. Jorge Hg 8.1 hct 24.5; will continue to monitor; heparin still on hold. Wound Cx L foot Staphylococcus, Corneybacterium Species 55 cc of serous drainage expressed from the proximal aspect of the surgical incision. Surgical wound cleaned with saline and dressed with 1/4inch iodoform packing, betadine, ABD, DSD, CIERRA Continue IV Abx as per ID - pt likely to go to subacute rehab Upon discharge, pt advised to follow up weekly in [facility] w/ Dr. Jorge Podiatry will continue to follow patient while in house
[2018-01-22] MEDS: Oxycodone/Acetaminophen 5/325 mg Tab PO PRN (20:11)
[2018-01-23] MEDS: Oxycodone/Acetaminophen 5/325 mg Tab PO PRN ×2 (06:03→17:22)
[2018-01-23] MEDS: (Novolog) Insulin Aspart, Recombinant 100 u/ml 10 ml vial SC SCH ×5 (08:30→21:41)
[2018-01-23] MEDS: (Novolog Mix 70/30) Insulin Aspart/Insulin Aspar 100 units/ml SC SCH (08:30)
--- NOTE | 2018-01-23 08:47 | CP.PCM.PN ---
Subjective - Date & Time of Evaluation Date of Evaluation: 01/23/18 Time of Evaluation: 07:35 - Subjective Subjective: PGY3 Progress Note-Dr. Erickson's service Patient seen and examined in no acute distress. Reports nausea overnight, not able to keep her breakfast down with one episode of vomit. She ate 60% of her lunch without issue. Acute finding. Otherwise, denies subjective fevers or chills, diarrhea or constipation at this time. Objective - Vital Signs/Intake and Output Vital Signs (last 24 hours): Temp Pulse Resp BP Pulse Ox 98 F 73 20 121/77 99 01/23/18 08:34 01/23/18 08:34 01/23/18 08:34 01/23/18 08:34 01/23/18 08:34 Intake and Output: 01/23/18 01/23/18 06:59 18:59 Intake Total 350 500 Balance 350 500 - Medications Medications: Current Medications Acetaminophen (Tylenol 325mg Tab) 650 mg PO Q6 PRN PRN Reason: Pain, Mild (1-3) Last Admin: 01/19/18 00:00 Dose: 650 mg Dextrose (Dextrose 50% Inj) 0 ml IV STAT PRN; Protocol PRN Reason: Hypoglycemia Protocol Dextrose (Glutose 15) 0 gm PO ONCE PRN; Protocol PRN Reason: Hypoglycemia Protocol Glucagon (Glucagen Diagnostic Kit) 0 mg IM STAT PRN; Protocol PRN Reason: Hypoglycemia Protocol Heparin Sodium (Porcine) (Heparin) 5,000 units SC Q8 [facility] Last Admin: 01/17/18 14:32 Dose: 5,000 units Vancomycin/Sodium Chloride (Vancomycin 1 Gm/Ns 200 Ml) 1 gm in 200 mls @ 133.333 mls/hr IVPB Q12H STEPHANIE PRN Reason: Protocol Stop: 01/27/18 20:01 Last Admin: 01/22/18 19:59 Dose: 133.333 mls/hr Insulin Aspart (Novolog Mix 70/30 (70/30 Units/Ml)) 25 units SC ACB STEPH[facility]IE Last Admin: 01/22/18 08:01 Dose: 25 units Insulin Aspart (Novolog Mix 70/30 (70/30 Units/Ml)) 25 units SC ACD [facility] Last Admin: 01/22/18 17:10 Dose: 25 units Insulin Aspart (Novolog) 0 unit SC ACHS [facility]IE PRN Reason: Protocol Last Admin: 01/22/18 22:25 Dose: Not Given Lisinopril (Zestril) 2.5 mg PO DAILY [facility] Last Admin: 01/22/18 09:51 Dose: 2.5 mg Oxycodone/Acetaminophen (Percocet 5/325 Mg Tab) 1 tab PO Q4H PRN PRN Reason: Pain, moderate (4-7) Stop: 01/25/18 11:04 Oxycodone/Acetaminophen (Percocet 5/325 Mg Tab) 2 tab PO Q4H PRN PRN Reason: Pain, severe (8-10) Stop: 01/25/18 11:05 Last Admin: 01/23/18 06:03 Dose: 2 tab Saccharomyces Boulardii (Florastor) 250 mg PO BID [facility] Last Admin: 01/22/18 17:31 Dose: 250 mg - Labs Labs: 01/21/18 06:18 01/21/18 06:18 PT 14.8 SECONDS (9.7-12.2) H 01/18/18 07:15 INR 1.4 01/18/18 07:15 APTT 31 SECONDS (21-34) 01/18/18 07:15 - Additional Findings Additional findings: - Head Exam Head Exam: ATRAUMATIC, NORMAL INSPECTION, NORMOCEPHALIC - Eye Exam Eye Exam: EOMI, Normal appearance, PERRL Pupil Exam: NORMAL ACCOMODATION - ENT Exam ENT Exam: Mucous Membranes Moist, Normal Oropharynx - Respiratory Exam Respiratory Exam: Clear to Ausculation Bilateral, NORMAL BREATHING PATTERN. absent: Respiratory Distress - Cardiovascular Exam Cardiovascular Exam: REGULAR RHYTHM, +S1, +S2 - GI/Abdominal Exam GI & Abdominal Exam: Soft, Normal Bowel Sounds. absent: Hyperactive Bowel Sounds - Extremities Exam Extremities Exam: Full ROM, Normal Inspection. absent: Pedal Edema - Back Exam Back Exam: NORMAL INSPECTION. absent: CVA tenderness (L), CVA tenderness (R), paraspinal tenderness - Neurological Exam Neurological Exam: Alert, Awake, CN II-XII Intact, Oriented x3 - Psychiatric Exam Psychiatric exam: Normal Affect, Normal Mood Assessment and Plan - Assessment and Plan (Free Text) Assessment: S/p left foot partial 1st ray restion 01/23: PICC line ordered, consent obtained. Continue IV Abx for 6-8 weeks per ID. Athletic Instructor, Dr. Jorge consulted- F/U recommendations. Wound Cx L foot Staphylococcus, Corneybacterium Species 55 cc of serous drainage expressed from the proximal aspect of the surgical incision. Surgical wound cleaned with saline and dressed with 1/4inch iodoform packing , betadine, ABD, DSD, CIERRA Continue IV Abx as per ID - pt likely to go to subacute rehab F/U ID ( Dr. Moseley) recommendations IV abx for 6-8 weeks. Medications: Acetaminophen 650mg PO Q6 PRN Percocet 1 tab po q4 prn 2 tab po q4 prn Imaging Foot X-ray: There is a skin surface and subcutaneous ulcer distal right the toe with destructive changes of distal phalanx consistent with osteomyelitis. C. Surrounding soft tissue swelling. Ulcerative changes distal soft tissues of left great toe with surrounding soft tissue swelling. Soft tissue swelling that extends proximally involving the remainder of the left foot consistent with cellulitis. Foot MRI findings suggestive of Osteomyelitis. F/U blood cultures and wound culture results On Vancomycin 1gm IV Q12H , Zosyn 3.357gm IV Q6H and Florastor 250mg PO BID vanc trough 8.5 on 01/18- collected too early. Repeat Vanc trough 11.6 (01/19/18). For bone ideal trough is 15-20. Will continue regimen. Monitor EKG Findings- 01/18/18 Repeat EKG shows normal QT interval. CXR- No active disease- questionable bleb noted in right apex region Detsky Score is 0. This is indicative of a 6% chance of cardiologic event during a non-cardiologic surgery. Perez score is 0.02% for cardiac risk. Patient is medically optimized for surgical procedure based on this assessment. Will benefit from PT/OT. F/U recommendations Diabetes mellitus Assessment and Plan: 01/23: patient with bouts of hypoglycemia. Patient with mild n/v, not eating consistently. Stopped home Humalog 70/30. Start ISS medium dose. HgbA1C (01/16/18): 9.9 Continue home medication: * Humalog 70/30 25 units ACB * Humalog 70/30 25 units ACD * Lisinopril 2.5mg PO daily * Accuchecks q6H * Hypoglycemia protocol Anemia Assessment and Plan: 01/23: Hgb 8.2, continue to monitor. Hgb 7 today. Down from 8.6 today. Iron studies: Iron:25 TIBC:199 % Saturation :13 Type and screen. Ordered 1 unit of blood today. Monitor Hgb. May require more transfusions in the future. Transfuse if HgB below 7. Low HDL Assessment and Plan: Recommendations for Fibrates or Niacin post surgery with continued management with outpatient doctor. Nausea 01/23: one episode of vomit this morning. continue to monitor. Zofran prn. Prophylactic measure Assessment and Plan: GI: Not indicated DVT: SCDs contraindicated. Heparin 5,000 units Q8H - held Will restart per Podiatry recommendations. Disposition: PICC line to be placed, consent in chart. Patient will need 6-8wks of IV Abx at [facility]. Discussed with attending. All management and planning per Dr. Erickson.
[2018-01-23] MEDS: Vancomycin 1 gm/NS 200 ml 1 GM/200 ML BAG IVPB SCH ×2 (08:59→19:27)
[2018-01-23] MEDS: Saccharomyces Boulardi 250 mg Cap PO SCH ×2 (10:56→17:18)
[2018-01-23 12:01] LABS: BASO # 0.1 K/uL (0.0-0.2); EOS # 0.2 K/uL (0.0-0.7); EOS % 3.1 % (0.0-4.0); HEMOGLOBIN 8.2 g/dL (11.0-16.0); LYMPH % 29.1 % (20.0-40.0); MEAN CELL VOLUME 81.4 fL (81.0-99.0); MEAN CORPUSCULAR HEMOGLOBIN 26.7 pg (27.0-31.0); MEAN CORPUSCULAR HGB CONC 32.8 g/dL (33.0-37.0); MONO # 0.5 K/uL (0.0-0.8); MONO % 6.4 % (0.0-10.0); NEUT # 4.2 K/uL (1.8-7.0); NEUT % 60.4 % (50.0-75.0); NRBC % 0.1 % (0.0-2.0); RBC 3.07 Mil/uL (3.80-5.20); RED CELL DISTRIBUTION WIDTH 14.8 % (11.5-14.5)
[2018-01-23 12:25] LABS: ALB/GLOB RATIO 0.8 (1.0-2.1); ALBUMIN 3.1 g/dL (3.5-5.0); ALT/SGPT 23 U/L (9-52); AST/SGOT 25 U/L (14-36); BLOOD UREA NITROGEN 5 mg/dL (7-17); CALCIUM 10.2 mg/dl (8.6-10.4); GFR AFRICAN-AMERICAN > 60; GFR NON-AFRICAN AMERICAN > 60
[2018-01-23] MEDS: Piperacillin/Tazobact 3.375 GM in Sodium Chloride 100 ML IVPB SCH ×2 (13:30→17:33)
--- NOTE | 2018-01-23 17:43 | RAD ---
Date of service: 01/23/2018 HISTORY: verify right PICC COMPARISON: 01/16/2018 FINDINGS: LUNGS: No infiltrate. Stable nodular opacity in right apex dating back to 2013. No new mass identified. PLEURA: No significant pleural effusion identified, no pneumothorax apparent. CARDIOVASCULAR: New right PICC catheter terminating in the region of the superior vena cava. Normal heart size. OSSEOUS STRUCTURES: No significant abnormalities. VISUALIZED UPPER ABDOMEN: Normal. OTHER FINDINGS: None. IMPRESSION: New right PICC catheter terminating in region of superior vena cava. Stable right apical nodule.
--- NOTE | 2018-01-23 22:24 | CP.PCM.PN ---
Subjective - Date & Time of Evaluation Date of Evaluation: 01/23/18 Time of Evaluation: 06:45 - Subjective Subjective: Podiatry Progress Note- Dr Jorge 57F seen and evaluated at bedside for 5 days s/p left partial 1st ray amputation and right foot hyperkeratotic lesions. Patient reports that she slept well. Denies acute overnight events. Denies nausea, fever, shortness of breath, chest pains or chills. Objective - Vital Signs/Intake and Output Vital Signs (last 24 hours): Temp Pulse Resp BP Pulse Ox 98.1 F 81 20 121/77 98 01/23/18 16:00 01/23/18 16:00 01/23/18 16:00 01/23/18 16:00 01/23/18 16:00 Intake and Output: 01/23/18 01/24/18 18:59 06:59 Intake Total 1300 Balance 1300 - Medications Medications: Current Medications Acetaminophen (Tylenol 325mg Tab) 650 mg PO Q6 PRN PRN Reason: Pain, Mild (1-3) Last Admin: 01/19/18 00:00 Dose: 650 mg Dextrose (Dextrose 50% Inj) 0 ml IV STAT PRN; Protocol PRN Reason: Hypoglycemia Protocol Dextrose (Glutose 15) 0 gm PO ONCE PRN; Protocol PRN Reason: Hypoglycemia Protocol Docusate Sodium (Colace) 100 mg PO TID [facility] Last Admin: 01/23/18 17:18 Dose: 100 mg Glucagon (Glucagen Diagnostic Kit) 0 mg IM STAT PRN; Protocol PRN Reason: Hypoglycemia Protocol Heparin Sodium (Porcine) (Heparin) 5,000 units SC Q8 [facility] Last Admin: 01/17/18 14:32 Dose: 5,000 units Vancomycin/Sodium Chloride (Vancomycin 1 Gm/Ns 200 Ml) 1 gm in 200 mls @ 133.333 mls/hr IVPB Q12H STEPHANIE PRN Reason: Protocol Stop: 01/27/18 20:01 Last Admin: 01/23/18 19:27 Dose: 133.333 mls/hr Piperacillin Sod/Tazobactam (Sod 3.375 gm/ Sodium Chloride) 100 mls @ 200 mls/ hr IVPB Q6H [facility] PRN Reason: Protocol Last Admin: 01/23/18 17:33 Dose: 200 mls/hr Insulin Aspart (Novolog Mix 70/30 (70/30 Units/Ml)) 25 units SC ACB [facility] Last Admin: 01/23/18 08:30 Dose: Not Given Insulin Aspart (Novolog Mix 70/30 (70/30 Units/Ml)) 25 units SC ACD [facility] Last Admin: 01/22/18 17:10 Dose: 25 units Insulin Aspart (Novolog) 0 unit SC ACHS [facility] PRN Reason: Protocol Last Admin: 01/23/18 21:41 Dose: Not Given Lisinopril (Zestril) 2.5 mg PO DAILY [facility] Last Admin: 01/23/18 10:56 Dose: 2.5 mg Ondansetron HCl (Zofran Inj) 4 mg IVP Q8H PRN PRN Reason: Nausea/Vomiting Oxycodone/Acetaminophen (Percocet 5/325 Mg Tab) 1 tab PO Q4H PRN PRN Reason: Pain, moderate (4-7) Stop: 01/25/18 11:04 Oxycodone/Acetaminophen (Percocet 5/325 Mg Tab) 2 tab PO Q4H PRN PRN Reason: Pain, severe (8-10) Stop: 01/25/18 11:05 Last Admin: 01/23/18 17:22 Dose: 2 tab Saccharomyces Boulardii (Florastor) 250 mg PO BID [facility] Last Admin: 01/23/18 17:18 Dose: 250 mg - Labs Labs: 01/23/18 11:48 01/23/18 11:48 PT 14.8 SECONDS (9.7-12.2) H 01/18/18 07:15 INR 1.4 01/18/18 07:15 APTT 31 SECONDS (21-34) 01/18/18 07:15 - Constitutional Appears: Well, Non-toxic, No Acute Distress - Extremities Exam Extremities Exam: absent: Calf Tenderness Additional comments: Left Lower Extremity Examination: Vasc: DP/PT pulses palpable 2/4. Temperature gradient warm to cool. CFT < 3 sec x 4; unable to assess to R foot 1st and 2nd digits secondary to possible necrotic changes, non pitting edema noted to the medial aspect of the midfoot and forefoot Derm: Surgical incision noted to the medial aspect of the left foot. Surgical sutures intact to distal 3/4 of surgical incision. Proximal 1/4 of surgical site exhibits significant maceration. Able to express 2 cc of purulence drainage from the proximal aspect of the surgical incision Hyperkeratotic lesions noted submet 5 Neuro: Protective sensation grossly intact Ortho: Mild-moderate tenderness to palpation of left foot ulcerations. No tenderness to palpation of R foot digits - Neurological Exam Neurological Exam: Alert, Awake - Psychiatric Exam Psychiatric exam: Normal Affect, Normal Mood Assessment and Plan - Assessment and Plan (Free Text) Assessment: 57F 5 days s/p partial amputation of the left foot 1st ray and right foot hyperkeratotic lesions Plan: Patient seen and evaluated at bedside Plan discussed with attending Dr. Jorge Hg 8.2 hct 25; will continue to monitor; heparin still on hold. Wound Cx L foot Staphylococcus, Corneybacterium Species 2 cc of purulence drainage expressed from the proximal aspect of the surgical incision. Surgical wound cleaned with betadine and dressed with 1/4inch iodoform packing, betadine, ABD, DSD, CIERRA Left foot wound culture: Kocuria Roseus, Coagulase eg Staphylococcus Continue IV Abx as per ID - pt likely to go to subacute rehab Upon discharge, pt advised to follow up weekly in [facility] w/ Dr. Jorge Podiatry will continue to follow patient while in house
[2018-01-24] MEDS: Piperacillin/Tazobact 3.375 GM in Sodium Chloride 100 ML IVPB SCH ×4 (00:34→17:54)
[2018-01-24] MEDS: Oxycodone/Acetaminophen 5/325 mg Tab PO PRN (01:15)
[2018-01-24 07:15] LABS: BASO # 0.1 K/uL (0.0-0.2); BASO % 1.1 % (0.0-2.0); EOS # 0.3 K/uL (0.0-0.7); EOS % 3.9 % (0.0-4.0); HEMOGLOBIN 7.9 g/dL (11.0-16.0); LYMPH # 1.6 K/uL (1.0-4.3); LYMPH % 24.8 % (20.0-40.0); MEAN CELL VOLUME 81.3 fL (81.0-99.0); MEAN CORPUSCULAR HEMOGLOBIN 26.4 pg (27.0-31.0); MEAN CORPUSCULAR HGB CONC 32.5 g/dL (33.0-37.0); MEAN PLATELET VOLUME 6.9 fL (7.2-11.7); MONO # 0.5 K/uL (0.0-0.8); MONO % 7.9 % (0.0-10.0); NEUT # 4.1 K/uL (1.8-7.0); NEUT % 62.3 % (50.0-75.0); RBC 2.98 Mil/uL (3.80-5.20); RED CELL DISTRIBUTION WIDTH 15.4 % (11.5-14.5); WHITE BLOOD COUNT 6.6 K/uL (4.8-10.8)
--- NOTE | 2018-01-24 07:20 | CP.PCM.PN ---
Subjective - Date & Time of Evaluation Date of Evaluation: 01/24/18 Time of Evaluation: 07:00 - Subjective Subjective: PGY3 Progress Note-Dr. Erickson's service Patient seen and examined in no acute distress. Last episode of vomiting was yesterday morning. Mild nausea this morning with breakfast. Denies subjective fevers or chills, diarrhea or constipation at this time. PICC in place. Objective - Vital Signs/Intake and Output Vital Signs (last 24 hours): Temp Pulse Resp BP Pulse Ox 98.7 F 84 20 118/75 99 01/24/18 00:00 01/24/18 00:00 01/24/18 00:00 01/24/18 00:00 01/24/18 00:00 Intake and Output: 01/24/18 01/24/18 06:59 18:59 Intake Total 850 Balance 850 - Medications Medications: Current Medications Acetaminophen (Tylenol 325mg Tab) 650 mg PO Q6 PRN PRN Reason: Pain, Mild (1-3) Last Admin: 01/19/18 00:00 Dose: 650 mg Dextrose (Dextrose 50% Inj) 0 ml IV STAT PRN; Protocol PRN Reason: Hypoglycemia Protocol Dextrose (Glutose 15) 0 gm PO ONCE PRN; Protocol PRN Reason: Hypoglycemia Protocol Docusate Sodium (Colace) 100 mg PO TID [facility] Last Admin: 01/23/18 17:18 Dose: 100 mg Glucagon (Glucagen Diagnostic Kit) 0 mg IM STAT PRN; Protocol PRN Reason: Hypoglycemia Protocol Heparin Sodium (Porcine) (Heparin) 5,000 units SC Q8 [facility] Last Admin: 01/17/18 14:32 Dose: 5,000 units Vancomycin/Sodium Chloride (Vancomycin 1 Gm/Ns 200 Ml) 1 gm in 200 mls @ 133.333 mls/hr IVPB Q12H [facility] PRN Reason: Protocol Stop: 01/27/18 20:01 Last Admin: 01/23/18 19:27 Dose: 133.333 mls/hr Piperacillin Sod/Tazobactam (Sod 3.375 gm/ Sodium Chloride) 100 mls @ 200 mls/ hr IVPB Q6H [facility]IE PRN Reason: Protocol Last Admin: 01/24/18 06:25 Dose: 200 mls/hr Insulin Aspart (Novolog Mix 70/30 (70/30 Units/Ml)) 25 units SC ACB [facility] Last Admin: 01/23/18 08:30 Dose: Not Given Insulin Aspart (Novolog Mix 70/30 (70/30 Units/Ml)) 25 units SC ACD [facility] Last Admin: 01/22/18 17:10 Dose: 25 units Insulin Aspart (Novolog) 0 unit SC ACHS [facility] PRN Reason: Protocol Last Admin: 01/23/18 21:41 Dose: Not Given Lisinopril (Zestril) 2.5 mg PO DAILY [facility] Last Admin: 01/23/18 10:56 Dose: 2.5 mg Ondansetron HCl (Zofran Inj) 4 mg IVP Q8H PRN PRN Reason: Nausea/Vomiting Oxycodone/Acetaminophen (Percocet 5/325 Mg Tab) 1 tab PO Q4H PRN PRN Reason: Pain, moderate (4-7) Stop: 01/25/18 11:04 Oxycodone/Acetaminophen (Percocet 5/325 Mg Tab) 2 tab PO Q4H PRN PRN Reason: Pain, severe (8-10) Stop: 01/25/18 11:05 Last Admin: 01/24/18 01:15 Dose: 2 tab Saccharomyces Boulardii (Florastor) 250 mg PO BID [facility] Last Admin: 01/23/18 17:18 Dose: 250 mg - Labs Labs: 01/23/18 11:48 01/23/18 11:48 PT 14.8 SECONDS (9.7-12.2) H 01/18/18 07:15 INR 1.4 01/18/18 07:15 APTT 31 SECONDS (21-34) 01/18/18 07:15 - Additional Findings Additional findings: - Head Exam Head Exam: ATRAUMATIC, NORMAL INSPECTION, NORMOCEPHALIC - Eye Exam Eye Exam: EOMI, Normal appearance, PERRL Pupil Exam: NORMAL ACCOMODATION - ENT Exam ENT Exam: Mucous Membranes Moist, Normal Oropharynx - Respiratory Exam Respiratory Exam: Clear to Ausculation Bilateral, NORMAL BREATHING PATTERN. absent: Respiratory Distress - Cardiovascular Exam Cardiovascular Exam: REGULAR RHYTHM, +S1, +S2 - GI/Abdominal Exam GI & Abdominal Exam: Soft, Normal Bowel Sounds. absent: Hyperactive Bowel Sounds - Extremities Exam Extremities Exam: Full ROM, Normal Inspection. absent: Pedal Edema +PICC in place at L arm; CDI. - Back Exam Back Exam: NORMAL INSPECTION. absent: CVA tenderness (L), CVA tenderness (R), paraspinal tenderness - Neurological Exam Neurological Exam: Alert, Awake, CN II-XII Intact, Oriented x3 - Psychiatric Exam Psychiatric exam: Normal Affect, Normal Mood Assessment and Plan - Assessment and Plan (Free Text) Assessment: S/p left foot partial 1st ray restion 01/24: PICC in place at L arm; CDI. Continue IV Abx for 6-8 weeks per ID. 01/23: PICC line ordered, consent obtained. Continue IV Abx for 6-8 weeks per ID. Buildings Painter, Dr. Jorge consulted- F/U recommendations. Wound Cx L foot Staphylococcus, Corneybacterium Species 55 cc of serous drainage expressed from the proximal aspect of the surgical incision. Surgical wound cleaned with saline and dressed with 1/4inch iodoform packing , betadine, ABD, DSD, CIERRA Continue IV Abx as per ID - pt likely to go to subacute rehab F/U ID ( Dr. Moseley) recommendations IV abx for 6-8 weeks. Medications: Acetaminophen 650mg PO Q6 PRN Percocet 1 tab po q4 prn 2 tab po q4 prn Imaging Foot X-ray: There is a skin surface and subcutaneous ulcer distal right the toe with destructive changes of distal phalanx consistent with osteomyelitis. C. Surrounding soft tissue swelling. Ulcerative changes distal soft tissues of left great toe with surrounding soft tissue swelling. Soft tissue swelling that extends proximally involving the remainder of the left foot consistent with cellulitis. Foot MRI findings suggestive of Osteomyelitis. F/U blood cultures and wound culture results On Vancomycin 1gm IV Q12H , Zosyn 3.357gm IV Q6H and Florastor 250mg PO BID vanc trough 8.5 on 01/18- collected too early. Repeat Vanc trough 11.6 (01/19/18). For bone ideal trough is 15-20. Will continue regimen. Monitor EKG Findings- 01/18/18 Repeat EKG shows normal QT interval. CXR- No active disease- questionable bleb noted in right apex region Detsky Score is 0. This is indicative of a 6% chance of cardiologic event during a non-cardiologic surgery. Perez score is 0.02% for cardiac risk. Patient is medically optimized for surgical procedure based on this assessment. Will benefit from PT/OT. F/U recommendations Diabetes mellitus Assessment and Plan: 01/24: Patients blood sugar is in a more acceptable range with medium dose ISS ( and Humalog 70/30 d/c'd). 01/23: patient with bouts of hypoglycemia. Patient with mild n/v, not eating consistently. Stopped home Humalog 70/30. Start ISS medium dose. HgbA1C (01/16/18): 9.9 Continue home medication: * Humalog 70/30 25 units ACB * Humalog 70/30 25 units ACD * Lisinopril 2.5mg PO daily * Accuchecks q6H * Hypoglycemia protocol Anemia Assessment and Plan: 01/24: Hgb 7.9, mildly decreased, monitor. 01/23: Hgb 8.2, continue to monitor. Hgb 7 today. Down from 8.6 today. Iron studies: Iron:25 TIBC:199 % Saturation :13 Type and screen. Ordered 1 unit of blood today. Monitor Hgb. May require more transfusions in the future. Transfuse if HgB below 7. Low HDL Assessment and Plan: Recommendations for Fibrates or Niacin post surgery with continued management with outpatient doctor. Nausea 01/23-01/24: one episode of vomit this morning. continue to monitor. Zofran prn. Prophylactic measure Assessment and Plan: GI: Not indicated DVT: SCDs contraindicated. Heparin 5,000 units Q8H - held Will restart per Podiatry recommendations. Disposition: PICC line to be placed, consent in chart. Patient will need 6-8wks of IV Abx at [facility]. Discussed with attending. All management and planning per Dr. Erickson.
[2018-01-24 07:47] LABS: ALB/GLOB RATIO 0.8 (1.0-2.1); ALT/SGPT 17 U/L (9-52); AST/SGOT 20 U/L (14-36); BLOOD UREA NITROGEN 7 mg/dL (7-17); CALCIUM 9.9 mg/dl (8.6-10.4); GFR AFRICAN-AMERICAN > 60; GFR NON-AFRICAN AMERICAN > 60
[2018-01-24] MEDS: (Novolog) Insulin Aspart, Recombinant 100 u/ml 10 ml vial SC SCH ×4 (08:06→21:58)
[2018-01-24] MEDS: Vancomycin 1 gm/NS 200 ml 1 GM/200 ML BAG IVPB SCH (08:44)
--- NOTE | 2018-01-24 09:13 | CP.PCM.PN ---
Subjective - Date & Time of Evaluation Date of Evaluation: 01/24/18 Time of Evaluation: 09:12 - Subjective Subjective: Podiatry Progress Note- Dr Jorge 57F seen and evaluated at bedside for 6 days s/p left partial 1st ray amputation and right foot hyperkeratotic lesions. Patient is resting comfortably in bed, in NAD, and AA0x3. Denies acute overnight events. Patient reports improved pain. Rates pain 4/10 today. Denies nausea, fever, shortness of breath, chest pains or chills. Objective - Vital Signs/Intake and Output Vital Signs (last 24 hours): Temp Pulse Resp BP Pulse Ox 98.7 F 84 20 118/75 99 01/24/18 00:00 01/24/18 00:00 01/24/18 00:00 01/24/18 00:00 01/24/18 00:00 Intake and Output: 01/24/18 01/24/18 06:59 18:59 Intake Total 850 Balance 850 - Medications Medications: Current Medications Acetaminophen (Tylenol 325mg Tab) 650 mg PO Q6 PRN PRN Reason: Pain, Mild (1-3) Last Admin: 01/19/18 00:00 Dose: 650 mg Dextrose (Dextrose 50% Inj) 0 ml IV STAT PRN; Protocol PRN Reason: Hypoglycemia Protocol Dextrose (Glutose 15) 0 gm PO ONCE PRN; Protocol PRN Reason: Hypoglycemia Protocol Docusate Sodium (Colace) 100 mg PO TID [facility] Last Admin: 01/23/18 17:18 Dose: 100 mg Glucagon (Glucagen Diagnostic Kit) 0 mg IM STAT PRN; Protocol PRN Reason: Hypoglycemia Protocol Heparin Sodium (Porcine) (Heparin) 5,000 units SC Q8 [facility] Last Admin: 01/17/18 14:32 Dose: 5,000 units Vancomycin/Sodium Chloride (Vancomycin 1 Gm/Ns 200 Ml) 1 gm in 200 mls @ 133.333 mls/hr IVPB Q12H [facility] PRN Reason: Protocol Stop: 01/27/18 20:01 Last Admin: 01/24/18 08:44 Dose: 133.333 mls/hr Piperacillin Sod/Tazobactam (Sod 3.375 gm/ Sodium Chloride) 100 mls @ 200 mls/ hr IVPB Q6H [facility] PRN Reason: Protocol Last Admin: 01/24/18 06:25 Dose: 200 mls/hr Insulin Aspart (Novolog Mix 70/30 (70/30 Units/Ml)) 25 units SC ACB [facility] Last Admin: 01/23/18 08:30 Dose: Not Given Insulin Aspart (Novolog Mix 70/30 (70/30 Units/Ml)) 25 units SC ACD [facility] Last Admin: 01/22/18 17:10 Dose: 25 units Insulin Aspart (Novolog) 0 unit SC ACHS [facility] PRN Reason: Protocol Last Admin: 01/24/18 08:06 Dose: Not Given Lisinopril (Zestril) 2.5 mg PO DAILY [facility] Last Admin: 01/23/18 10:56 Dose: 2.5 mg Ondansetron HCl (Zofran Inj) 4 mg IVP Q8H PRN PRN Reason: Nausea/Vomiting Last Admin: 01/24/18 08:43 Dose: 4 mg Oxycodone/Acetaminophen (Percocet 5/325 Mg Tab) 1 tab PO Q4H PRN PRN Reason: Pain, moderate (4-7) Stop: 01/25/18 11:04 Oxycodone/Acetaminophen (Percocet 5/325 Mg Tab) 2 tab PO Q4H PRN PRN Reason: Pain, severe (8-10) Stop: 01/25/18 11:05 Last Admin: 01/24/18 01:15 Dose: 2 tab Saccharomyces Boulardii (Florastor) 250 mg PO BID [facility] Last Admin: 01/23/18 17:18 Dose: 250 mg - Labs Labs: 01/24/18 07:00 01/24/18 07:00 PT 14.8 SECONDS (9.7-12.2) H 01/18/18 07:15 INR 1.4 01/18/18 07:15 APTT 31 SECONDS (21-34) 01/18/18 07:15 - Constitutional Appears: Well, Non-toxic, No Acute Distress - Extremities Exam Extremities Exam: absent: Calf Tenderness Additional comments: Lower Extremity Examination: Vasc: DP/PT pulses palpable 2/4. Temperature gradient warm to cool. CFT < 3 sec x 4; unable to assess to R foot 1st and 2nd digits secondary to possible necrotic changes, non pitting edema noted to the medial aspect of the midfoot and forefoot Derm: Surgical incision noted to the medial aspect of the left foot. Surgical sutures intact to distal 3/4 of surgical incision. Proximal 1/4 of surgical site exhibits significant maceration, slightly improved. Expressed .5cc of serous drainaged from the proximal aspect of the surgical incision Hyperkeratotic lesions noted submet 5 Neuro: Protective sensation grossly intact Ortho: Mild-moderate tenderness to palpation of left foot ulcerations. No tenderness to palpation of R foot digits - Neurological Exam Neurological Exam: Alert, Awake, Oriented x3 - Psychiatric Exam Psychiatric exam: Normal Affect, Normal Mood Assessment and Plan - Assessment and Plan (Free Text) Assessment: 57F 6 days s/p partial amputation of the left foot 1st ray and right foot hyperkeratotic lesions Plan: Patient seen and evaluated at bedside Plan discussed with attending Dr. Jorge Labs and vitals reviewed Hg and hct slightly trended downwards: H/H 7.9/24.2 today from 8.2/25 on 01/23; will continue to monitor; heparin still on hold. s .5 cc of serous drainage expressed from the proximal aspect of the surgical incision. Surgical wound cleaned with betadine and dressed with 1/4inch iodoform packing, betadine, ABD, DSD, CIERRA Left foot wound culture 01/18: Kocuria Roseus, Coagulase eg Staphylococcus Continue IV Abx as per ID - pt likely to go to subacute rehab Upon discharge, pt advised to follow up weekly in [facility] w/ Dr. Jorge Podiatry will continue to follow patient while in house
[2018-01-24] MEDS: Saccharomyces Boulardi 250 mg Cap PO SCH ×2 (10:55→17:54)
[2018-01-25] MEDS: Piperacillin/Tazobact 3.375 GM in Sodium Chloride 100 ML IVPB SCH ×3 (00:51→12:46)
[2018-01-25] MEDS: Oxycodone/Acetaminophen 5/325 mg Tab PO PRN (01:09)
[2018-01-25 06:53] LABS: BASO # 0.1 K/uL (0.0-0.2); BASO % 1.3 % (0.0-2.0); EOS # 0.2 K/uL (0.0-0.7); EOS % 3.5 % (0.0-4.0); HEMOGLOBIN 8.3 g/dL (11.0-16.0); LYMPH % 30.5 % (20.0-40.0); MEAN CELL VOLUME 81.5 fL (81.0-99.0); MEAN CORPUSCULAR HEMOGLOBIN 26.8 pg (27.0-31.0); MEAN CORPUSCULAR HGB CONC 32.9 g/dL (33.0-37.0); MEAN PLATELET VOLUME 6.7 fL (7.2-11.7); MONO # 0.5 K/uL (0.0-0.8); NEUT # 3.8 K/uL (1.8-7.0); NEUT % 57.7 % (50.0-75.0); RBC 3.11 Mil/uL (3.80-5.20); RED CELL DISTRIBUTION WIDTH 15.6 % (11.5-14.5); WHITE BLOOD COUNT 6.5 K/uL (4.8-10.8)
[2018-01-25 07:10] LABS: IRON 46 ug/dL (37-170)
[2018-01-25 07:20] LABS: % IRON SATURATION 22 (20-55); TOTAL IRON BINDING CAPACITY 208 ug/dL (250-450); VANCOMYCIN TROUGH 8.5 ug/mL (5.0-10.0)
[2018-01-25 07:39] LABS: ALB/GLOB RATIO 0.8 (1.0-2.1); ALBUMIN 3.2 g/dL (3.5-5.0); ALT/SGPT 21 U/L (9-52); AST/SGOT 16 U/L (14-36); BLOOD UREA NITROGEN 8 mg/dL (7-17); CALCIUM 10.4 mg/dl (8.6-10.4); GFR AFRICAN-AMERICAN > 60; GFR NON-AFRICAN AMERICAN > 60
[2018-01-25] MEDS: (Novolog) Insulin Aspart, Recombinant 100 u/ml 10 ml vial SC SCH ×2 (08:00→12:14)
[2018-01-25 08:05] VITALS: BP 106/67; PULSE 89; TEMP 98.3; O2SAT 100
--- NOTE | 2018-01-25 09:54 | CP.PCM.PN ---
Subjective - Date & Time of Evaluation Date of Evaluation: 01/25/18 Time of Evaluation: 10:44 - Subjective Subjective: PGY 3 Med Note- Dr. Erickson's service Patient seen and examined in no acute distress. Patient s/p 1st ray resection. Patient is participating with physical therapy. She denies nausea, pain, vomiting, fevers or chills or paresthesias at this time. Objective - Vital Signs/Intake and Output Vital Signs (last 24 hours): Temp Pulse Resp BP Pulse Ox 98.3 F 89 20 106/67 100 01/25/18 08:00 01/25/18 08:00 01/25/18 08:00 01/25/18 08:00 01/25/18 08:00 Intake and Output: 01/25/18 01/25/18 06:59 18:59 Intake Total 440 Balance 440 - Medications Medications: Current Medications Acetaminophen (Tylenol 325mg Tab) 650 mg PO Q6 PRN PRN Reason: Pain, Mild (1-3) Last Admin: 01/19/18 00:00 Dose: 650 mg Dextrose (Dextrose 50% Inj) 0 ml IV STAT PRN; Protocol PRN Reason: Hypoglycemia Protocol Dextrose (Glutose 15) 0 gm PO ONCE PRN; Protocol PRN Reason: Hypoglycemia Protocol Docusate Sodium (Colace) 100 mg PO TID [facility] Last Admin: 01/24/18 17:54 Dose: 100 mg Glucagon (Glucagen Diagnostic Kit) 0 mg IM STAT PRN; Protocol PRN Reason: Hypoglycemia Protocol Heparin Sodium (Porcine) (Heparin) 5,000 units SC Q8 [facility] Last Admin: 01/17/18 14:32 Dose: 5,000 units Piperacillin Sod/Tazobactam (Sod 3.375 gm/ Sodium Chloride) 100 mls @ 200 mls/ hr IVPB Q6H [facility] PRN Reason: Protocol Last Admin: 01/25/18 05:45 Dose: 200 mls/hr Vancomycin HCl 1 gm/ Sodium (Chloride) 250 mls @ 167 mls/hr IVPB Q12H [facility] PRN Reason: Protocol Last Admin: 01/25/18 08:30 Dose: 167 mls/hr Insulin Aspart (Novolog Mix 70/30 (70/30 Units/Ml)) 25 units SC ACB [facility] Last Admin: 01/23/18 08:30 Dose: Not Given Insulin Aspart (Novolog Mix 70/30 (70/30 Units/Ml)) 25 units SC ACD [facility] Last Admin: 01/22/18 17:10 Dose: 25 units Insulin Aspart (Novolog) 0 unit SC ACHS [facility] PRN Reason: Protocol Last Admin: 01/25/18 08:00 Dose: 2 units Lisinopril (Zestril) 2.5 mg PO DAILY [facility] Last Admin: 01/24/18 10:55 Dose: 2.5 mg Ondansetron HCl (Zofran Inj) 4 mg IVP Q8H PRN PRN Reason: Nausea/Vomiting Last Admin: 01/25/18 08:39 Dose: 4 mg Oxycodone/Acetaminophen (Percocet 5/325 Mg Tab) 1 tab PO Q4H PRN PRN Reason: Pain, moderate (4-7) Stop: 01/25/18 11:04 Oxycodone/Acetaminophen (Percocet 5/325 Mg Tab) 2 tab PO Q4H PRN PRN Reason: Pain, severe (8-10) Stop: 01/25/18 11:05 Last Admin: 01/25/18 01:09 Dose: 2 tab Saccharomyces Boulardii (Florastor) 250 mg PO BID [facility] Last Admin: 01/24/18 17:54 Dose: 250 mg - Labs Labs: 01/25/18 06:37 01/25/18 06:37 PT 14.8 SECONDS (9.7-12.2) H 01/18/18 07:15 INR 1.4 01/18/18 07:15 APTT 31 SECONDS (21-34) 01/18/18 07:15 - Constitutional Appears: Non-toxic, No Acute Distress - Head Exam Head Exam: ATRAUMATIC, NORMAL INSPECTION - Eye Exam Eye Exam: EOMI, Normal appearance, PERRL Pupil Exam: NORMAL ACCOMODATION - ENT Exam ENT Exam: Mucous Membranes Moist - Neck Exam Neck Exam: Full ROM - Respiratory Exam Respiratory Exam: NORMAL BREATHING PATTERN. absent: Wheezes - Cardiovascular Exam Cardiovascular Exam: +S1, +S2 - GI/Abdominal Exam GI & Abdominal Exam: Soft, Normal Bowel Sounds - Extremities Exam Extremities Exam: Full ROM, Normal Capillary Refill, Tenderness (mild tenderness to palpation) Additional comments: surgical incision sites noted - Back Exam Back Exam: Full ROM, NORMAL INSPECTION - Neurological Exam Neurological Exam: Alert, Awake, Oriented x3 Assessment and Plan - Assessment and Plan (Free Text) Assessment: S/P left foot partial 1st ray resection Assessment and Plan: Continue IV Abx for 6-8 weeks per ID. Digital Forensic Examiner, Dr. Jorge consulted- F/U recommendations. Surgical wound cleaned with saline and dressed with 1/4inch iodoform packing, betadine, ABD, DSD, CIERRA Continue IV Abx as per ID - pt likely to go to subacute rehab. Continue dressing changes ID (Dr. Moseley) recommendations- IV abx for 6-8 weeks. Medications: Acetaminophen 650mg PO Q6 PRN Percocet 1 tab po q4 prn 2 tab po q4 prn Initial Imaging Foot X-ray: There is a skin surface and subcutaneous ulcer distal right the toe with destructive changes of distal phalanx consistent with osteomyelitis. C. Surrounding soft tissue swelling. Ulcerative changes distal soft tissues of left great toe with surrounding soft tissue swelling. Soft tissue swelling that extends proximally involving the remainder of the left foot consistent with cellulitis. Foot MRI findings suggestive of Osteomyelitis. F/U blood cultures and wound culture results Diabetes mellitus Assessment and Plan: HgbA1C (01/16/18): 9.9 Continue home medication: * Humalog 70/30 25 units ACB * Humalog 70/30 25 units ACD * Lisinopril 2.5mg PO daily * Accuchecks q6H * Hypoglycemia protocol Anemia Assessment and Plan: Monitor at this time Low HDL Assessment and Plan: Recommendations for Fibrates or Niacin with continued management with outpatient doctor. Prophylactic measure Assessment and Plan: GI: Not indicated DVT: SCDs contraindicated. Heparin 5,000 units Q8H DC Instructions Patient is medically stable for discharge to [facility] subacute rehab. Patient to follow up with primary medical doctor within one week after discharge from [facility]. Upon discharge, pt advised to follow up weekly in [facility] w/ Dr. Jorge . Patient to have weekly dressing changes while at rehab. Patient to continue IV antibiotics for 6 - 8 weeks as per ID If symptoms return, go to the emergency room. Instructions explained to patient who is aware. Discussed with attending. All management and planning per Dr. Erickson.
[2018-01-25] MEDS: Saccharomyces Boulardi 250 mg Cap PO SCH (10:56)
--- NOTE | 2018-01-25 21:16 | OP ---
Copied To: HUMAIRA GARCIA MD Attending MD: Alka Jorge DPM PROCEDURE DATE: 01/18/2018 SURGEON: Alka Jorge DPM MANAGER FOREIGN: Humaira Garcia, PGY-1 ANESTHESIOLOGIST: Marek Price CRNA TYPE OF ANESTHESIA: IV sedation and local. PREOPERATIVE DIAGNOSIS: Left foot diabetic ulcer with osteomyelitis. POSTOPERATIVE DIAGNOSIS: Left foot diabetic ulcer with osteomyelitis. PROCEDURE: Left foot partial first ray amputation. INDICATIONS: The patient is a 57-year-old female with the above diagnosis. The patient has exhausted all conservative treatment at this time and now requires surgical intervention. This patient signed a consent after careful explanation of risks, benefits, complications, and alternatives for surgical procedure. No guarantees were given nor implied. PREPARATION: The patient was brought into the operating room and placed on the operating room table in a supine position. A timeout was performed for identification of the correct patient and procedure. After induction of IV sedation, the patient received a total of 20 mL of a 1:1 mixture of 1% lidocaine plain and 0.25% Marcaine plain in a local block fashion. Once local anesthesia was achieved, the left foot was then prepped and draped in normal sterile manner and the procedure began. DESCRIPTION OF PROCEDURE: Left foot partial first ray resection: The attention was directed to the left first metatarsal where a racquet-type incision was made circumferentially at the level of the first metatarsophalangeal joint using a #15 blade. The incision was then extended down through the subcutaneous layers down to the level of bone. Using a bone clamp, we stabilized the toe. from the foot at the level of the first metatarsophalangeal joint. The specimen was then passed from the operative field and sent to Pathology. Using a fresh #15 blade, all the chronic and nonviable tissue was then excisionally debrided from the surgical site. Next, utilizing a #15 blade, all periosteal tissue was carefully resected off the metatarsal. Using the sagittal saw, the proximal aspect of the first metatarsal shaft was then resected and passed in the operative field. All rough edges were then smoothened using a rasp and sagittal saw. The surgical site was then irrigated with copious amount of normal sterile saline mixed with Bactroban. The skin edged were reapproximated with 2-0 Prolene in a horizontal mattress technique and site was left open for packing with 1/4-inch iodoform packing. The left foot was then dressed with betadine-soaked Adaptic, 4 x 4 gauze, ABD pads, and Kerlix. POSTOPERATIVE CONDITION: The patient tolerated the anesthesia and procedure well and was escorted to the floor with vital signs stable and neurovascular status intact to the left foot. The patient is to non-weightbear to the left lower extremity and Podiatry will continue to follow while in-house and will follow up with Dr. Jorge. We will follow up with Dr. Jorge upon discharge. HUMAIRA GARCIA MD Alka Jorge DPM
--- NOTE | 2018-01-25 23:15 | CP.PCM.PN ---
Subjective - Date & Time of Evaluation Date of Evaluation: 01/25/18 Time of Evaluation: 09:00 - Subjective Subjective: Podiatry Progress Note- Dr Jorge 57F seen and evaluated at bedside for 7 days s/p left partial 1st ray amputation and right foot hyperkeratotic lesions. Patient is resting comfortably in bed, in NAD, and AA0x3. Denies acute overnight events. Patient reports that she has worked with physical therapy. Reports it's hard for her to be NWB to the right foot and WB to the left leg because her knees hurt. Denies nausea, fever, shortness of breath, chest pains or chills. Objective - Vital Signs/Intake and Output Vital Signs (last 24 hours): Temp Pulse Resp BP Pulse Ox 98.3 F 89 20 106/67 100 01/25/18 08:00 01/25/18 08:00 01/25/18 08:00 01/25/18 08:00 01/25/18 08:00 Intake and Output: 01/25/18 01/26/18 18:59 06:59 Intake Total 650 Balance 650 - Labs Labs: 01/25/18 06:37 01/25/18 06:37 PT 14.8 SECONDS (9.7-12.2) H 01/18/18 07:15 INR 1.4 01/18/18 07:15 APTT 31 SECONDS (21-34) 01/18/18 07:15 - Constitutional Appears: Well, Non-toxic, No Acute Distress - Extremities Exam Extremities Exam: absent: Calf Tenderness Additional comments: Lower Extremity Examination: Vasc: DP/PT pulses palpable 2/4. Temperature gradient warm to cool. CFT < 3 sec x 4; unable to assess to R foot 1st and 2nd digits secondary to possible necrotic changes, non pitting edema noted to the medial aspect of the midfoot and forefoot Derm: Surgical incision noted to the medial aspect of the left foot. Surgical sutures intact to distal 3/4 of surgical incision. Proximal 1/4 of surgical site exhibits significant maceration, slightly improved. Expressed .5cc of serous drainaged from the proximal aspect of the surgical incision Hyperkeratotic lesions noted submet 5 Neuro: Protective sensation grossly intact Ortho: Mild-moderate tenderness to palpation of left foot ulcerations. No tenderness to palpation of R foot digits Assessment and Plan - Assessment and Plan (Free Text) Assessment: 57F 7 days s/p partial amputation of the left foot 1st ray and right foot hyperkeratotic lesions Plan: Patient seen and evaluated at bedside Plan discussed with attending Dr. Jorge Labs and vitals reviewed H/H increased to 8.3/25.4 .5 cc of serous drainage expressed from the proximal aspect of the surgical incision. Surgical wound cleaned with betadine and dressed with 1/4inch iodoform packing, betadine, ABD, DSD, CIERRA Left foot wound culture 01/18: Kocuria Roseus, Coagulase eg Staphylococcus Continue IV Abx as per ID - pt likely to go to subacute rehab Upon discharge, pt advised to follow up weekly in [facility] w/ Dr. Jorge Dressing to be changed daily betadine w2d dressing, ABD, DSD, and light CIERRA Podiatry will continue to follow patient while in house
[2018-01-26] MEDS ORDERED: Vancomycin 1 GM in Sodium Chloride 0.9% 200 ML IVPB SCH (08:00)
== END 2018-01-25 16:20 ==
LOC: C.ER 15:09 → C.9E 17:37 → C.3T 18:29
PROVIDERS: ADMIT Internal Medicine Pulmonary Disease; ATTEND Internal Medicine Pulmonary Disease
PROC: 0Y6Q0Z0 Detachment at Left 1st Toe, Complete, Open Approach (ICD-10-PCS; principal; 2018-01-18 12:30)
PROC: 30233N1 Transfusion of Nonautologous Red Blood Cells into Peripheral Vein, Percutaneous Approach (ICD-10-PCS; 2018-01-20)
PROC: 02HV33Z Insertion of Infusion Device into Superior Vena Cava, Percutaneous Approach (ICD-10-PCS; 2018-01-23)
DX: E11.69 Type 2 diabetes mellitus with other specified complication (principal); M86.172 Other acute osteomyelitis, left ankle and foot; L97.529 Non-pressure chronic ulcer of other part of left foot with unspecified severity; E11.621 Type 2 diabetes mellitus with foot ulcer; D64.9 Anemia, unspecified; E11.40 Type 2 diabetes mellitus with diabetic neuropathy, unspecified; L03.032 Cellulitis of left toe; E11.649 Type 2 diabetes mellitus with hypoglycemia without coma; E78.00 Pure hypercholesterolemia, unspecified; F17.210 Nicotine dependence, cigarettes, uncomplicated; I10 Essential (primary) hypertension; L84 Corns and callosities; Z79.4 Long term (current) use of insulin

== ENCOUNTER 2018-08-28 10:48 | Outpatient (CLI) | payer OTHER | END 2018-08-28 10:49 | disposition home or self-care (01) | LOC: C.CTH 10:48 ==

== ENCOUNTER 2018-10-07 09:44 | Outpatient (CLI) | payer OTHER | END 2018-10-07 09:45 | disposition home or self-care (01) | LOC: C.MRIC 09:44 | DX: L97.519 Non-pressure chronic ulcer of other part of right foot with unspecified severity (principal); L97.509 Non-pressure chronic ulcer of other part of unspecified foot with unspecified severity ==